=== PATIENT | female | born 1960 | race Caucasian/White ===

== ENCOUNTER 2019-10-29 10:35 | Outpatient (CLI) | payer BC, SELFPAY ==
--- NOTE | ~2019-10-29 | XR_ITS ---
XR chest 2V DATE: 10/29/2019 11:29 INDICATION: Shortness of breath TECHNIQUE: PA and lateral views COMPARISON: 08/08/2016 2 view chest 08/07/2017 CT chest FINDINGS: No pulmonary infiltrate or consolidation, pleural effusion or pulmonary vascular congestion or pneumothorax is detected. Heart size is within normal limits. No hilar or mediastinal enlargement . Diffuse idiopathic skeletal hyperostosis of the thoracic spine. IMPRESSION: No active cardiopulmonary disease or significant change since 08/08/2016 Reviewed, dictated and finalized at location B. AT INFORMATION CENTER OFFICER
[2019-10-29 18:09] LABS: Blood Urea Nitrogen 12 mg/dL (7-17); Calcium 9.8 mg/dL (8.4-10.2); Carbon Dioxide 25 mmol/L (22-30); Chloride 103 mmol/L (98-107); Estimated Glomerular Filt Rate > 60; Glucose 180 mg/dL (65-105); Potassium 4.6 mmol/L (3.4-5.0); Sodium 139 mmol/L (137-145)
[2019-10-29 18:24] LABS: NT Pro B Type Natriuretic Pept 80 PG/ML (5-100)
== END 2019-10-29 10:36 | disposition home or self-care (01) ==
PROVIDERS: PCP Family Medicine; Visit Provider Nurse Practitioner Family
DX: R60.9 Edema, unspecified (principal); R06.02 Shortness of breath
CPT/HCPCS: 36415; 71046; 80048; 83880

== ENCOUNTER 2019-11-04 15:26 | Outpatient (CLI) | payer BC, SELFPAY ==
--- NOTE | ~2019-11-04 | XR_ITS ---
EXAMINATION: XR chest 2V DATE: 11/04/2019 15:45 INDICATION: Acute upper respiratory infection TECHNIQUE: PA and lateral views of the chest are obtained. COMPARISON: 10/29/2019 FINDINGS: The lungs are free of acute opacities. There is no pleural effusion or pneumothorax. The ca rdiomediastinal silhouette is normal. There is mild thoracic spondylosis. IMPRESSION: 1. No acute cardiopulmonary abnormality. Reviewed, dictated and finalized at location A. OTIONAL DEMONSTRATOR
== END 2019-11-04 15:27 | disposition home or self-care (01) ==
PROVIDERS: PCP Family Medicine; Visit Provider Nurse Practitioner Family
DX: J06.9 Acute upper respiratory infection, unspecified (principal)
CPT/HCPCS: 71046

== ENCOUNTER 2020-04-16 15:19 | Outpatient (CLI) | payer BC, SELFPAY ==
--- NOTE | ~2020-04-16 | MM_ITS ---
EXAMINATION: MM screening rey BI w carrie HISTORY: Screening TECHNIQUE: Craniocaudal and mediolateral oblique 3-D tomosynthesis images were obtained and synthetic 2-D images were generated. CAD analysis was submitted and interpreted. COMPARISON: Comparison to multiple prior studies sequentially, with oldest reviewed study dated 07/26. BREAST PARENCHYMAL COMPOSITION: There are scattered areas of fibroglandular density. FINDINGS: Right breast asymmetries are stable. There is no evidence of suspicious mass, calcification , or architectural distortion to suggest malignancy in either breast. There has been no suspicious in terval change. IMPRESSION: 1. No mammographic evidence of malignancy. 2. Recommend routine screening mammography in one year. BI-RADS Category 2: Benign finding(s). Reviewed, dictated and finalized at location A.
== END 2020-04-16 15:20 | disposition home or self-care (01) ==
PROVIDERS: PCP Family Medicine; Visit Provider Obstetrics & Gynecology
DX: Z12.31 Encounter for screening mammogram for malignant neoplasm of breast (principal)
CPT/HCPCS: 77063; 77067

== ENCOUNTER 2020-11-26 09:29 | Outpatient (CLI) | payer BC, SELFPAY ==
--- NOTE | ~2020-11-26 | XR_ITS ---
EXAMINATION: XR knee RT min 4V EXAM DATE: 11/26/2020 09:58 INDICATION: No known recent injury provided at this time. Pain of the right knee. Rule out Matta's cy st. TECHNIQUE: Right knee frontal, crosstable lateral, orthogonal oblique projections for interpretation . There is no prior study for comparison. FINDINGS: No evidence osteochondral defect or joint body in the right knee joint. There is moderate patellofemoral and medial tibiofemoral compartment primary osteoarthritis. There are no acute fractu res or dislocations identified. There is no subcutaneous gas. The soft tissue is unremarkable. No j oint effusion. There are no radiopaque foreign bodies. Please note that Matta's cysts are best appre ciated by ultrasound. IMPRESSION: Moderate right knee osteoarthritis. Reviewed, dictated and finalized at location A. OVOLTAIC SOLAR CELL DESIGNER
== END 2020-11-26 09:30 | disposition home or self-care (01) ==
LOC: ANHIMG 09:37
PROVIDERS: PCP Family Medicine; Visit Provider Nurse Practitioner Family
DX: M17.11 Unilateral primary osteoarthritis, right knee (principal)
CPT/HCPCS: 73564

== ENCOUNTER 2020-11-27 15:12 | Outpatient (CLI) | payer BC, SELFPAY ==
--- NOTE | ~2020-11-27 | US_ITS ---
EXAMINATION: US venous doppler LE EXAM DATE: 11/27/2020 15:39 INDICATION: Right lower extremity pain. TECHNIQUE: Multiple grayscale, color flow and Doppler images of the lower extremity deep venous syste ms bilaterally were obtained and reviewed. There is no prior study for comparison. FINDINGS: Right side: The right common femoral, femoral and profunda veins demonstrate normal color flow, respi ratory variation, augmentation and compressibility. Compressibility, color flow confirmed within the right popliteal, posterior tibial, and greater saphenous veins. Left side: The left common femoral, femoral and profunda veins demonstrate normal color flow, respira tory variation, augmentation and compressibility. Compressibility, color flow confirmed within the l eft popliteal, posterior tibial, and greater saphenous veins. IMPRESSION: 1. No evidence of lower extremity deep venous thrombosis bilaterally. Reviewed, dictated and finalized at location A. [employer]
== END 2020-11-27 15:13 | disposition home or self-care (01) ==
PROVIDERS: PCP Family Medicine; Visit Provider Nurse Practitioner Family
DX: M25.561 Pain in right knee (principal)
CPT/HCPCS: 93970

== ENCOUNTER 2021-01-08 09:15 | Outpatient (CLI) | payer BC, SELFPAY | END 2021-01-08 09:16 | disposition home or self-care (01) | LOC: ANHCOVIDVC 09:15 | PROVIDERS: PCP Family Medicine | DX: Z23 Encounter for immunization (principal) | CPT/HCPCS: 0001A; 91300 ==

== ENCOUNTER 2021-01-29 09:14 | Outpatient (CLI) | payer BC, SELFPAY | END 2021-01-29 09:15 | disposition home or self-care (01) | LOC: ANHCOVIDVC 09:14 | PROVIDERS: PCP Family Medicine | DX: Z23 Encounter for immunization (principal) | CPT/HCPCS: 0002A; 91300 ==

== ENCOUNTER 2021-02-10 07:33 | Outpatient (CLI) | payer BC, SELFPAY ==
--- NOTE | 2021-02-10 08:19 | ECG_ITS ---
Measurements Intervals [place] Rate: 67 P: 66 [place]: 171 QRS: 31 QRSD: 98 T: 25 QT: 395 QTc: 420 Interpretive Statements SINUS RHYTHM LOW QRS VOLTAGE IN PRECORDIAL LEADS INCOMPLETE RIGHT BUNDLE BRANCH BLOCK BORDERLINE ECG Electronically Signed On 02-10-2021 8:27:57 CDT by Bravo Aquino D.O.
[2021-02-10 08:23] LABS: Hematocrit 44.5 % (37.0-47.0); Hemoglobin 14.3 g/dL (12.0-15.0); Mean Corpuscular HGB Conc 32.1 g/dl (32-36); Mean Corpuscular Volume 90.3 fl (80-100); Mean Platelet Volume 8.9 fl (7.4-10.4); Platelet Count Result 225 k/mm3 (150-375); Red Blood Count 4.93 M/mm3 (4.2-5.4); Red Cell Distribution Width 14.3 % (11.5-14.5); White Blood Count 6.1 K/mm3 (4.5-10.0)
[2021-02-10 08:34] LABS: Hemoglobin A1C 5.9 % (<5.7)
[2021-02-10 08:40] LABS: Alanine Aminotransferase 67 U/L (4-35); Albumin Level 4.2 g/dL (3.5-5.1); Alkaline Phosphatase 91 U/L (38-126); Anion Gap 4 mmol/L (8-16); Aspartate Amino Transferase 65 U/L (14-36); Bilirubin,Total 1.1 mg/dL (0.2-1.3); Blood Urea Nitrogen 12 mg/dL (7-17); Calcium 9.9 mg/dL (8.4-10.2); Carbon Dioxide 32 mmol/L (22-30); Chloride 104 mmol/L (98-107); Cholesterol 185 mg/dL (0-200); Estimated Glomerular Filt Rate > 60; Glucose 133 mg/dL (65-105); HDL Direct 30 mg/dL; Sodium 140 mmol/L (137-145); Triglycerides 123 mg/dL (<150)
[2021-02-10 08:52] LABS: LDL Cholesterol Direct 123 mg/dL
[2021-02-10 09:28] LABS: Vitamin D 25 Hydroxy 33.2 ng/mL
== END 2021-02-10 07:34 | disposition home or self-care (01) ==
PROVIDERS: PCP Family Medicine; Visit Provider Nurse Practitioner Family
DX: E66.01 Morbid (severe) obesity due to excess calories (principal); R73.09 Other abnormal glucose; I10 Essential (primary) hypertension; E55.9 Vitamin D deficiency, unspecified; I45.10 Unspecified right bundle-branch block
CPT/HCPCS: 36415; 80053; 80061; 82306; 83036; 84443; 85027; 93005

== ENCOUNTER → 2021-03-24 12:51 | Outpatient (CLI) | payer BC, SELFPAY ==
--- NOTE | ~2021-03-24 | US_ITS ---
EXAMINATION: US pelvic complete w TV EXAM DATE: 03/24/2021 13:18 INDICATION: N95.0 - Postmenopausal bleeding. TECHNIQUE: Pelvic transabdominal and transvaginal sonogram was performed. There are multiple graysca le and Doppler images available for interpretation. Comparison is made to prior examination from 06/05. FINDINGS: Uterus measures 8.7 x 3.1 x 3.4 cm, and is morphologically normal. Endometrial stripe rose mary sures 4 mm, within normal limits. There is no free pelvic fluid. Right adnexa: The ovary is not identified. There is no adnexal mass. Left adnexa: The ovary is not identified. There is no adnexal mass. IMPRESSION: Endometrial stripe 4 mm, within normal limits. Reviewed, dictated and finalized at location A.
== END ==
PROVIDERS: Visit Provider Obstetrics & Gynecology
DX: N95.0 Postmenopausal bleeding (principal)
CPT/HCPCS: 76830; 76856

== ENCOUNTER 2021-04-01 07:21 | Outpatient (CLI) | payer BC, SELFPAY ==
[2021-04-01 08:44] LABS: Alanine Aminotransferase 23 U/L (4-35); Albumin Level 4.3 g/dL (3.5-5.1); Alkaline Phosphatase 74 U/L (38-126); Aspartate Amino Transferase 28 U/L (14-36)
[2021-04-01 09:14] LABS: Cholesterol 127 mg/dL (0-200); Creatine Kinase 21 U/L (30-135); HDL Direct 37 mg/dL; Triglycerides 103 mg/dL (<150)
[2021-04-01 09:23] LABS: Hepatitis B Surface Antigen Negative (Negative)
[2021-04-01 09:25] LABS: LDL Cholesterol Direct 66 mg/dL
[2021-04-01 09:29] LABS: HAV RESULT Negative (Negative); Hepatitis B Core IgM Result Negative (Negative)
[2021-04-01 09:41] LABS: Hepatitis C Virus Antibody Negative (Negative)
[2021-04-04 21:54] LABS: GGT 21 U/L (3-70)
== END 2021-04-01 07:22 | disposition home or self-care (01) ==
PROVIDERS: PCP Family Medicine; Referring Provider Physician Assistant Medical; Visit Provider Nurse Practitioner Family
DX: R74.8 Abnormal levels of other serum enzymes (principal)
CPT/HCPCS: 36415; 80061; 80074; 80076; 82550; 82977

== ENCOUNTER 2021-04-06 15:11 | Outpatient (CLI) | payer BC, SELFPAY ==
--- NOTE | ~2021-04-06 | MM_ITS ---
EXAMINATION: MM screening rey BI w carrie HISTORY: Screening mammogram TECHNIQUE: Craniocaudal and mediolateral oblique 3-D tomosynthesis images were obtained and synthetic 2-D images were generated. CAD analysis was submitted and interpreted. COMPARISON: 04/16/2020, 11/21/2018, 11/03/2017 BREAST PARENCHYMAL COMPOSITION: There are scattered areas of fibroglandular density. FINDINGS: Stable focal asymmetry is noted in the upper outer quadrant of the right breast. There is n o evidence of suspicious mass, calcification, or architectural distortion to suggest malignancy in ei ther breast. There has been no suspicious interval change. IMPRESSION: 1. No mammographic evidence of malignancy. 2. Recommend routine screening mammography in one year. BI-RADS Category 2: Benign finding(s). Reviewed, dictated and finalized at location A.
== END 2021-04-06 15:12 | disposition home or self-care (01) ==
LOC: ANHIMG 15:13
PROVIDERS: PCP Family Medicine; Visit Provider Obstetrics & Gynecology
DX: Z12.31 Encounter for screening mammogram for malignant neoplasm of breast (principal)
CPT/HCPCS: 77063; 77067

== ENCOUNTER 2021-05-12 02:23 | Day surgery (SDC) | payer BC, SELFPAY ==
[2021-05-06 15:21] VITALS: BMI 48.7
--- NOTE | 2021-05-11 12:46 | WPDANESEPPF ---
Anes - Initial Pre Proc Eval Procedure: Operation Date: 05/12/21 07:30 Proposed Procedures p Hysteroscopy, Dilation and Curettage, Possible Myosure - Fermín James MD Date/Time: 05/11/21 12:46 Surgeon: Fermín James MD Pre Op Diagnosis: endometrial polyp Patient Data Age: 60 Gender: F Height: 1.65 m Weight: 133 kg Allergies Allergy/AdvReac Type Severity Reaction Status Date / Time No Known Allergies Allergy Verified 05/12/21 06:43 Home Medications Medication Instructions Recorded Confirmed Type lisinopril 10 mg tablet 10 mg PO DAILY #90 tablet 10/18/20 05/12/21 Rx metoprolol tartrate 25 mg tablet 25 mg PO BID #180 tablet 02/08/21 05/12/21 Rx rosuvastatin 20 mg tablet 20 mg PO DAILY #90 tablet 02/18/21 05/12/21 Rx ketoconazole 2 % topical cream 1 applic TOPICAL BID #60 g 05/04/21 05/12/21 Rx Aspir-81 81 mg PO DAILY 05/06/21 05/12/21 History fluconazole 150 mg tablet 150 mg PO DAILY #7 tablet 05/07/21 05/12/21 Rx Patient hx anesthesia problems: none Family hx anesthesia problems: none PMFSH Past Medical History Medical History Adult BMI 50.0-59.9 kg/sq m Asthma BMI 50.0-59.9, adult Essential (primary) hypertension Hyperlipidemia Hypertension Knee pain, right Metabolic syndrome Morbid obesity JESSICA on CPAP Postmenopausal bleeding Pre-diabetes Surgical History Surgical History H/O dilation and curettage History of ankle surgery History of tonsillectomy S/P cholecystectomy S/P hernia surgery Family History Family History Unknown Hypertension Other Colon polyp Social History Social History Smoking status: Never smoker Alcohol intake: current Spiritual care concerns: No Anes - Eval Final PreProcedure Day of Procedure 05/11/21 12:46 Patient weight: morbidly obese Heart: regular rate and rhythm Lungs: clear to auscultation and normal air movement Airway: Mallampati scale class II Neurological: alert and oriented Last oral intake: >/= 8 hours ASA classification: III Emergent: no Anesthetic plan: proceed Anesthesia type and monitoring: general LMA and ETT Informed Consent: The patient's anesthetic plan and its attendant risks and benefits were discussed with the patient/family/POA. Questions were solicited and answers provided to the satisfaction of the patient/family/POA.
--- NOTE | 2021-05-12 05:58 | PM.IMHP ---
H&P: HPI History of Present Illness Date/Time: 05/12/21 05:58 She will be getting a D&C hysteroscopy secondary to new episode of postmenopausal bleeding. The subsequent endometrial biopsy showing endometrial polyp fragment. This is her second episode of postmenopausal bleeding. She did have an an endometrial polyp removed in Jun 2018. Informed of risks of procedure to include bleeding infection injury to other organs in the urine and to repair and/or remove those organs if necessary to save her life she informed of risk of uterine perforation risk of laparoscopy laparotomy. Informed that if the pathology comes back abnormal risk of needing further more extensive procedure. Discussed that endometrial polyps can reoccur. and risk factors are obesity due to the extra estrogenic effect from the adipose cells. Discussed postop precautions pelvic rest for 2 weeks no bath or saunas 2 weeks. Her questions were answered. Consent signed. She was informed that if there are any cells that are concerning or abnormal from the D and C specimen then she may need further more extensive procedure in the future. She was informed that the office biopsy may have removed the polyp and there may not be a polyp at the time of surgery. Discussed that risk of not doing anything is persistence of the polyp which can progress to something abnormal and risk of continued episodic bleeding. Chief Complaint: Postmenopausal bleeding Review of Systems Review of Systems: All systems reviewed & are unremarkable except as noted in HPI and below Cardiovascular: Cardiovascular: Reports no additional cardiovascular complaints, Denies chest pain and Denies dyspnea Respiratory: Respiratory: Reports no additional respiratory complaints and Denies dyspnea Gastrointestinal: Gastrointestinal: Reports abdominal pain, Denies change in bowel habits, Denies diarrhea, Denies nausea and Denies vomiting Genitourinary: Genitourinary: Reports pelvic pain Musculoskeletal: Musculoskeletal: Reports back pain Integumentary/Breasts: Skin/Breast: Reports system reviewed and no additional complaints, except as docu Neurologic: Reports system reviewed and no additional complaints, except as documented [facility] Past Medical History Medical History Adult BMI 50.0-59.9 kg/sq m Asthma BMI 50.0-59.9, adult Essential (primary) hypertension Hyperlipidemia Hypertension Knee pain, right Metabolic syndrome Morbid obesity JESSICA on CPAP Postmenopausal bleeding Pre-diabetes Surgical History Surgical History H/O dilation and curettage History of ankle surgery History of tonsillectomy S/P cholecystectomy S/P hernia surgery Family History Family History Unknown Hypertension Other Colon polyp Social History Social History Smoking status: Never smoker Alcohol intake: current Spiritual care concerns: No Meds Home Medications and Allergies Home Medications Medication Instructions Recorded Confirmed Type lisinopril 10 mg tablet 10 mg PO DAILY #90 tablet 10/18/20 05/06/21 Rx metoprolol tartrate 25 mg tablet 25 mg PO BID #180 tablet 02/08/21 05/06/21 Rx rosuvastatin 20 mg tablet 20 mg PO DAILY #90 tablet 02/18/21 05/06/21 Rx ketoconazole 2 % topical cream 1 applic TOPICAL BID #60 g 05/04/21 05/06/21 Rx Aspir-81 81 mg PO DAILY 05/06/21 05/06/21 History fluconazole 150 mg tablet 150 mg PO DAILY #7 tablet 05/07/21 Rx Allergies Allergy/AdvReac Type Severity Reaction Status Date / Time No Known Allergies Allergy Verified 05/06/21 15:29 Exam Const: Orientation/consciousness: oriented to person and oriented to place HENMT: Head: normal to inspection Eyes: General: appearance normal, both eyes and all related structures Resp: Effort & Inspection: normal re
[2021-05-12] MEDS: ACETAMINOPHEN 500 MG TABLET 1000 MG PO (06:45)
[2021-05-12] MEDS: LACTATED RINGERS 1,000 ML 30 ML IV CONT ×2 (06:59→08:16)
[2021-05-12 07:03] VITALS: BP 167/62; PULSE 74; RESP 20; TEMP 36.5; O2SAT 100; BMI 51.5
--- NOTE | 2021-05-12 07:19 | WPDHPUPDATE1 ---
History and Physical Update Update Date/Time: 05/12/21 07:19 History and Physical has been reviewed, including an updated exam of the patient. There are NO changes in the patient's condition. Risks, benefits, and alternatives have been discussed and questions answered. Patient agrees to proceed with procedure.
[2021-05-12] MEDS: ceFAZolin 3 GM/D5W 100 ML 100 ML IVPB (07:30)
--- NOTE | 2021-05-12 08:10 | W.PM.PROC2 ---
Procedure Note - Detailed Date of Procedure 05/12/21 Pre-op Diagnosis endometrial polyp, postmenopausal bleeding Post-op Diagnosis same Procedure Performed Hysteroscopy and dilation and currettage Surgeon Fermín James MD Anesthesia MAC and local Indications Patient with postmenopausal bleeding and endometrial stripe was thickened on ultrasound endometrial biopsy in office showed possible endometrial polyp fragments.she was recommended for D and C hysteroscopy and removal of polyp if seen. Findings Normal cavity, minimal tissue obtained with currettage, uterine sound 7.5cm, 750 cc in, 580cc out of normal saline distending media. Description of Procedure after informed consent was obtained patient was taken to the operating room and adequate IV sedation was administered she was placed in high lithotomy position and prepped and draped in sterile fashion attention was turned to the vagina speculum was inserted single tooth tenaculum placed on anterior lip of the cervix 1% lidocaine was injected at the cervical vaginal interface a 258 and 10:00 a.m.. The uterus was sounded to 7 cm. The cervix was dilated to an 8 Upton dilator. The hysteroscope was inserted. There were no abnormalities noted with the cavity. A curettage was performed minimal tissue was obtained. The area at the tenaculum site was hemostatic. The patient tolerated procedure well. She was taken to recovery room stable condition. Estimated Blood Loss 5 Pathology yes ( Endometrial curettings scant) Complications No immediate complications Condition stable Disposition same day
[2021-05-12 08:16] VITALS: BP 162/84; PULSE 56; RESP 16; O2SAT 95
[2021-05-12 08:40] VITALS: BP 151/78; PULSE 54; RESP 18; O2SAT 95
[2021-05-12 09:00] VITALS: BP 178/79; PULSE 59; RESP 18
== END 2021-05-12 09:05 | disposition home or self-care (01) ==
PROVIDERS: PCP Family Medicine; Visit Provider Obstetrics & Gynecology
PROC: 0U5B8ZZ Destruction of Endometrium, Via Natural or Artificial Opening Endoscopic (ICD-10-PCS; CPT 58563; principal; 2021-05-12 07:30)
DX: N95.0 Postmenopausal bleeding (principal); Z79.82 Long term (current) use of aspirin; J45.909 Unspecified asthma, uncomplicated; I10 Essential (primary) hypertension; E78.5 Hyperlipidemia, unspecified; G47.33 Obstructive sleep apnea (adult) (pediatric); R73.03 Prediabetes; E66.01 Morbid (severe) obesity due to excess calories; Z68.43 Body mass index [BMI] 50.0-59.9, adult
CPT/HCPCS: 58558; 88305; A9270; J0690; J1100; J2250; J2405; J2704; J3010; J7030; J7120

== ENCOUNTER 2021-07-26 00:41 | Day surgery (SDC) | payer BC, SELFPAY ==
[2021-07-09 10:37] VITALS: BMI 49.5
--- NOTE | 2021-07-23 14:39 | PM.HPGS ---
History of Present Illness History of Present Illness Consent: Risks, benefits, and alternatives have been discussed and questions answered. Patient agrees to proceed with procedure. Chief complaint: neoplasm screening Narrative: Nedra Dorman is a 61 year old female here for colon cancer screening. Review of Systems Review of Systems: All systems reviewed & are unremarkable except as noted in HPI and below PMFSH Past Medical History Medical History Adult BMI 50.0-59.9 kg/sq m Asthma BMI 50.0-59.9, adult Essential (primary) hypertension Hyperlipidemia Hypertension Knee pain, right Metabolic syndrome Morbid obesity JESSICA on CPAP Postmenopausal bleeding Pre-diabetes Surgical History Surgical History H/O dilation and curettage History of ankle surgery History of tonsillectomy S/P cholecystectomy S/P hernia surgery Family History Family History Unknown Hypertension Other Colon polyp Social History Social History Smoking status: Never smoker Second hand tobacco smoke exposure: No Alcohol intake: never Substance use: never Substance use type: does not use Living arrangements: with family Gender identity (if verbalized by the patient): Female Sexual Orientation (if Verbalized by the Patient): Straight or Heterosexual Spiritual care concerns: No Agree to blood products: Yes Meds Home Medications and Allergies Home Medications Medication Instructions Recorded Confirmed Type lisinopril 10 mg tablet 10 mg PO DAILY #90 tablet 10/18/20 07/26/21 Rx metoprolol tartrate 25 mg tablet 25 mg PO BID #180 tablet 02/08/21 07/26/21 Rx Aspir-81 81 mg PO DAILY 05/06/21 07/26/21 History rosuvastatin 20 mg tablet 20 mg PO DAILY #90 tablet 05/17/21 07/26/21 Rx semaglutide 0.5 mg SUBCUT WEEKLY #1.5 ml 06/03/21 07/26/21 Rx Allergies Allergy/AdvReac Type Severity Reaction Status Date / Time No Known Allergies Allergy Verified 07/26/21 07:42 Exam Resp: Auscultation: clear to auscultation bilaterally Cardio: Rate: regular rate Rhythm: regular rhythm GI: GI Palp: Yes Soft to palpation and No Tenderness to palpation present (GI) Assessment and Plan Assessment and plan (1) Screening for colon cancer: Code(s): Z12.11 - Encounter for screening for malignant neoplasm of colon Status: Acute Assessment and Plan: Colonoscopy with possible biopsy or polypectomy or cautery or injection of substances.
[2021-07-26 07:43] VITALS: BP 154/83; PULSE 76; RESP 20; TEMP 36.2; O2SAT 97; BMI 48.7
[2021-07-26] MEDS: LACTATED RINGERS 1,000 ML 150 ML IV CONT (07:48)
--- NOTE | 2021-07-26 07:59 | P.PNAN_ITS ---
Anes - Initial Pre Proc Eval Procedure: Operation Date: 07/26/21 08:30 Proposed Procedures p Screening Colonoscopy - Mendoza Phan MD Date/Time: 07/26/21 07:59 Surgeon: Mendoza Phan MD Pre Op Diagnosis: neoplasm screening Patient Data Age: 61 Gender: F Height: 1.65 m Weight: 132.9 kg Last Vital Signs Temp 36.2 C L 07/26/21 07:43 Pulse 76 07/26/21 07:43 Resp 20 07/26/21 07:43 BP 154/83 H 07/26/21 07:43 Pulse Ox 97 07/26/21 07:43 Allergies Allergy/AdvReac Type Severity Reaction Status Date / Time No Known Allergies Allergy Verified 07/26/21 07:42 Home Medications Medication Instructions Recorded Confirmed Type lisinopril 10 mg tablet 10 mg PO DAILY #90 tablet 10/18/20 07/26/21 Rx metoprolol tartrate 25 mg tablet 25 mg PO BID #180 tablet 02/08/21 07/26/21 Rx Aspir-81 81 mg PO DAILY 05/06/21 07/26/21 History rosuvastatin 20 mg tablet 20 mg PO DAILY #90 tablet 05/17/21 07/26/21 Rx semaglutide 0.5 mg SUBCUT WEEKLY #1.5 ml 06/03/21 07/26/21 Rx Patient hx anesthesia problems: none Family hx anesthesia problems: none Results Review: All pre-operative results and documents have been reviewed as part of the pre-operative evaluation. [facility] Past Medical History Medical History Adult BMI 50.0-59.9 kg/sq m Asthma BMI 50.0-59.9, adult Essential (primary) hypertension Hyperlipidemia Hypertension Knee pain, right Metabolic syndrome Morbid obesity JESSICA on CPAP Postmenopausal bleeding Pre-diabetes Surgical History Surgical History H/O dilation and curettage History of ankle surgery History of tonsillectomy S/P cholecystectomy S/P hernia surgery Family History Family History Unknown Hypertension Other Colon polyp Social History Social History Smoking status: Never smoker Second hand tobacco smoke exposure: No Alcohol intake: never Substance use: never Substance use type: does not use Living arrangements: with family Gender identity (if verbalized by the patient): Female Sexual Orientation (if Verbalized by the Patient): Straight or Heterosexual Spiritual care concerns: No Agree to blood products: Yes Anes - Eval Final PreProcedure Day of Procedure 07/26/21 07:59 Patient weight: morbidly obese Heart: regular rate and rhythm Lungs: clear to auscultation Airway: Mallampati scale class II Neurological: alert and oriented Last oral intake: >/= 8 hours ASA classification: III Emergent: no Anesthetic plan: proceed Anesthesia type and monitoring: general GIVS and standard monitoring Results Review: All pre-operative results and documents have been reviewed as part of the pre-operative evaluation. Informed Consent: The patient's anesthetic plan and its attendant risks and benefits were discussed with the patient/family/POA. Questions were solicited and answers provided to the satisfaction of the patient/family/POA.
[2021-07-26 08:35] VITALS: BP 130/71; PULSE 72; RESP 13; O2SAT 96
[2021-07-26 08:45] VITALS: BP 145/72; PULSE 71; RESP 20; O2SAT 100
[2021-07-26 08:55] VITALS: BP 164/70; PULSE 74; RESP 21; O2SAT 100
== END 2021-07-26 09:04 | disposition home or self-care (01) ==
PROVIDERS: PCP Family Medicine; Visit Provider Internal Medicine Gastroenterology
PROC: 0DJD8ZZ Inspection of Lower Intestinal Tract, Via Natural or Artificial Opening Endoscopic (ICD-10-PCS; CPT 45378; principal; 2021-07-26 08:30)
DX: Z12.11 Encounter for screening for malignant neoplasm of colon (principal); Z86.010 Personal history of colon polyps; Z79.82 Long term (current) use of aspirin; J45.909 Unspecified asthma, uncomplicated; I10 Essential (primary) hypertension; E78.5 Hyperlipidemia, unspecified; G47.33 Obstructive sleep apnea (adult) (pediatric); R73.03 Prediabetes; E66.01 Morbid (severe) obesity due to excess calories; Z68.42 Body mass index [BMI] 45.0-49.9, adult
CPT/HCPCS: 45378; J2704; J7120

== ENCOUNTER 2022-03-22 06:42 | Outpatient (CLI) | payer BC, SELFPAY ==
[2022-03-22 08:15] LABS: Hematocrit 43.4 % (37.0-47.0); Hemoglobin 13.5 g/dL (12.0-15.0); Mean Corpuscular HGB Conc 31.1 g/dl (32-36); Mean Corpuscular Hemoglobin 27.8 pg (26-34); Mean Corpuscular Volume 89.5 fl (80-100); Mean Platelet Volume 9.7 fl (7.4-10.4); Platelet Count Result 208 k/mm3 (150-375); Red Blood Count 4.85 M/mm3 (4.2-5.4); Red Cell Distribution Width 15.2 % (11.5-14.5)
[2022-03-22 08:17] LABS: Appearance Urine Clear (Clear); Bilirubin Urine Negative (Negative); Blood Urine Negative (Negative); Color Urine Yellow (Yellow); Glucose Urine UA Negative (Negative); Ketones Urine Negative (Negative); Leukocyte Esterase Ur Negative LEU/UL (NEGATIVE); Nitrate Urine Negative (Negative); Protein Urine Negative (Negative); Urobilinogen Urine 0.2 mg/dL (<2.0); pH Urine 5.5 (5.0-9.0)
[2022-03-22 08:24] LABS: Alanine Aminotransferase 17 U/L (6-35); Albumin Level 4.3 g/dL (3.5-5.1); Alkaline Phosphatase 71 U/L (38-126); Anion Gap 6 mmol/L (8-16); Aspartate Amino Transferase 20 U/L (14-36); Bilirubin,Total 0.9 mg/dL (0.2-1.3); Blood Urea Nitrogen 16 mg/dL (7-17); Calcium 9.2 mg/dL (8.4-10.2); Carbon Dioxide 32 mmol/L (22-30); Chloride 105 mmol/L (98-107); Cholesterol 144 mg/dL (0-200); Estimated Glomerular Filt Rate > 60; Glucose 118 mg/dL (65-110); HDL Direct 42 mg/dL; Potassium 4.4 mmol/L (3.4-5.0); Sodium 143 mmol/L (137-145); Triglycerides 101 mg/dL (<150)
[2022-03-22 08:35] LABS: LDL Cholesterol Direct 70 mg/dL
[2022-03-22 09:10] LABS: Vitamin D 25 Hydroxy 46.6 ng/mL
[2022-03-22 09:19] LABS: Bacteria Urine Trace /hpf; RBC Urine 0-2 /hpf (0-2); Squamous Epithelial Cell Urine Few /hpf (Few); WBC Urine 0-3 /hpf (0-3)
[2022-03-22 09:24] LABS: Add Urine Microscopic? NO
== END 2022-03-22 06:43 | disposition home or self-care (01) ==
PROVIDERS: PCP Family Medicine; Visit Provider Nurse Practitioner Family
DX: E55.9 Vitamin D deficiency, unspecified (principal); E78.5 Hyperlipidemia, unspecified; I10 Essential (primary) hypertension; R35.0 Frequency of micturition
CPT/HCPCS: 36415; 80053; 80061; 81003; 82306; 84443; 85027

== ENCOUNTER 2022-05-12 08:22 | Outpatient (CLI) | payer BC, SELFPAY ==
--- NOTE | ~2022-05-12 | MM_ITS ---
EXAMINATION: MM screening rey BI w carrie HISTORY: Screening mammogram TECHNIQUE: Craniocaudal and mediolateral oblique 3-D tomosynthesis images were obtained and synthetic 2-D images were generated. CAD analysis was submitted and interpreted. COMPARISON: No prior mammogram is available for comparison at this institution. BREAST PARENCHYMAL COMPOSITION: There are scattered areas of fibroglandular density. FINDINGS: Bilateral asymmetries, in the mid to upper outer right breast and upper outer left breast. Bilateral diagnostic mammography and breast ultrasound examination are recommended. IMPRESSION: 1. Bilateral mammographic asymmetries 2. Bilateral diagnostic mammography and breast ultrasound examination are recommended BI-RADS Category 0: Incomplete: Needs additional imaging evaluation. Reviewed, dictated and finalized at location A. IMPRESSION: 1. Bilateral mammographic asymmetries 2. Bilateral diagnostic mammography and breast ultrasound examination are recom mended BI-RADS Category 0: Incomplete: Needs additional imaging evaluation.
== END 2022-05-12 08:23 | disposition home or self-care (01) ==
PROVIDERS: PCP Family Medicine; Visit Provider Obstetrics & Gynecology
DX: Z12.31 Encounter for screening mammogram for malignant neoplasm of breast (principal); R92.8 Other abnormal and inconclusive findings on diagnostic imaging of breast
CPT/HCPCS: 77063; 77067

== ENCOUNTER 2022-05-24 09:54 | Outpatient (CLI) | payer BC, SELFPAY ==
--- NOTE | ~2022-05-24 | MMUS_ITS ---
EXAMINATION: MM diagnostic rey BI w carrie, US breast BI limited HISTORY: Bilateral breast asymmetries on screening mammogram TECHNIQUE: Additional 3-D tomosynthesis images of the breasts were performed and synthetic 2-D images were generated. CAD analysis was submitted and interpreted. High resolution limited bilateral breast ultrasound was performed. COMPARISON: Prior mammograms and ultrasound dating back to 07/28/2014 FINDINGS: MAMMOGRAPHIC FINDINGS: Right breast: A focal asymmetry of the right breast has a stable appearance with spot compression whe n compared to multiple prior examinations. No suspicious interval change is identified. Left breast: There is a return to baseline fibroglandular appearance with spot compression of the lef t breast in the area questioned on screening mammogram. ULTRASOUND: Right breast: There is a chronic area of sonographic shadowing related to extremely dense tissue in t he middle third of the outer right breast at the 9:30 location 10 cm from the nipple. There has been no suspicious interval change since the 2013 comparison ultrasound. Left breast: No suspicious cystic or solid sonographically detected mass is identified. IMPRESSION: 1. No mammographic or sonographic evidence of malignancy. 2. Recommend routine screening mammography in one year. BI-RADS Category 2: Benign finding(s). Reviewed, dictated and finalized at location A. IMPRESSION: 1. No mammographic or sonographic evidence of malignancy. 2. Recommend routine screening mammography in one year. BI-RADS Category 2: Benign finding(s).
== END 2022-05-24 09:55 ==
PROVIDERS: PCP Family Medicine; Visit Provider Obstetrics & Gynecology
DX: R92.8 Other abnormal and inconclusive findings on diagnostic imaging of breast (principal)
CPT/HCPCS: 76642; 77062; 77066; G0279

== ENCOUNTER 2022-06-04 08:09 | Outpatient (CLI) | payer BC, SELFPAY ==
[2022-06-04 08:58] LABS: Hemoglobin A1C 5.4 % (<5.7)
[2022-06-07 12:50] LABS: Insulin Level Total 17.3 uIU/mL (<=19.6)
[2022-06-09 22:42] LABS: Estrogen 212.9 pg/mL
[2022-06-12 03:45] LABS: Testosterone Free 2.7 pg/mL (0.1-6.4); Testosterone Total 21 ng/dL (2-45)
== END 2022-06-04 08:10 | disposition home or self-care (01) ==
LOC: ANHLAB 08:12
PROVIDERS: PCP Family Medicine; Visit Provider Nurse Practitioner Family
DX: R63.5 Abnormal weight gain (principal); R73.09 Other abnormal glucose
CPT/HCPCS: 36415; 82672; 83036; 83525; 84402; 84403

== ENCOUNTER 2022-07-01 07:21 | Outpatient (CLI) | payer BC, SELFPAY ==
--- NOTE | ~2022-07-01 | MR_ITS ---
EXAMINATION: MR knee LT wo con DATE: 07/01/2022 07:50 INDICATION: Left knee pain TECHNIQUE: Magnetic resonance imaging (MRI) of the left knee was performed without intravenous contra st. Sequences included coronal PD-weighted FSE, coronal PD-weighted FS FSE, sagittal T2-weighted FSE , sagittal PD-weighted FS FSE and axial PD weighted fat saturated FSE. COMPARISON: None. FINDINGS: Medial compartment: There is medial extrusion of the medial meniscal body. There is increased intrasubstance signal in th e posterior horn which does not unambiguously contact the articular surface consistent with mucoid de generation. Deep chondral ulceration along the anterior to central weightbearing medial femoral condy le with underlying mild cortical irregularity anteriorly. Additional deep chondral ulceration with mi ld underlying edema-like signal change involving the anterior, central and medial portion of the medi al tibial plateau. Small shallow concavity to the central articular surface of the medial tibial plat eau without underlying edema to suggest acute fracture. Lateral compartment: Lateral meniscus is normal. Partial-thickness chondral ulceration and deep fissuring at the anterior to central weightbearing lateral femoral condyle. Mild partial-thickness cartilage loss with mild cho ndral surface regularity along the medial half of the lateral tibial plateau. Patellofemoral compartment: Partial-thickness chondral ulceration without degenerative subchondral changes at the patella where i t appears to involve up to 50% the cartilage thickness. Additional extensive deep chondral ulceration at the trochlea where it involves greater than 50% the cartilage thickness and with mild underlying cortical irregularity at the inferior aspect of the trochlear groove and medial trochlea. Ligaments and tendons: Anterior and posterior cruciate ligaments are normal. The medial collateral ligament and fibular tamiko ateral ligament complex are normal. Mild patellar tendinopathy and mild tendinopathy at the distal qu adriceps tendon. The visualized medial and lateral hamstring tendons as well as the iliotibial band a re normal. Fluid: Minimal left knee joint effusion. No loose osteochondral bodies identified. Small Matta's cyst. Osseous/other: Bone alignment is normal. Small low signal intensity bone island in the posterior lateral femoral con dyle. Mild patchy red marrow reexpansion in the metaphyseal region of the distal femur and proximal t ibia with more confluent red marrow reexpansion in the distal femoral diaphysis. No fracture or patho logic marrow replacing process. IMPRESSION: 1. Medial extrusion of the medial meniscal body with mucoid degeneration at the posterior horn but no definitive meniscal tear. 2. Tricompartmental osteoarthritis, severe with high-grade chondromalacia in the medial compartment, moderate severity with extensive high-grade chondromalacia in the patellofemoral compartment and mild with moderate grade chondromalacia in the lateral compartment. 3. Mild patellar and distal quadriceps tendinopathy. 4. Minimal left knee joint effusion and small Matta's cyst. Reviewed, dictated and finalized at location A. IMPRESSION: 1. Medial extrusion of the medial meniscal body with mucoid degeneration at the posterior horn but no definitive meniscal tear. 2. Tricompartmental osteoarthritis, severe with high-grade chondromalacia in th e medial compartment, moderate severity with extensive high-grade chondromalaci a in the patellofemoral compartment and mild with moderate grade chondromalacia in the lateral compartment. 3. Mild patellar and distal quadriceps tendinopathy. 4. Minimal left knee joint effusion and small Matta's cyst.
== END 2022-07-01 07:22 ==
PROVIDERS: PCP Family Medicine; Visit Provider Nurse Practitioner Family
DX: M17.12 Unilateral primary osteoarthritis, left knee (principal); M25.462 Effusion, left knee; M71.22 Synovial cyst of popliteal space [Baker], left knee
CPT/HCPCS: 73721

== ENCOUNTER 2022-09-13 08:49 | Outpatient (CLI) | payer BC, SELFPAY | END 2022-09-13 08:50 | disposition home or self-care (01) | LOC: ANHAUDIO 08:50 | PROVIDERS: PCP Family Medicine; Visit Provider Nurse Practitioner Family | DX: H93.19 Tinnitus, unspecified ear (principal); H90.3 Sensorineural hearing loss, bilateral | CPT/HCPCS: 92557; 92567 ==

== ENCOUNTER 2022-11-14 13:51 | Outpatient (CLI) | payer BC, SELFPAY ==
--- NOTE | ~2022-11-14 | US_ITS ---
EXAMINATION: US soft tissue LE RT DATE: 11/14/2022 14:35 INDICATION: Right posterior knee pain TECHNIQUE: Multiple grayscale and Doppler ultrasound images of the region of concern posterior to the right knee were obtained. COMPARISON: None FINDINGS/IMPRESSION: No Matta's cyst or other abnormal masses or fluid collections identified at the region of concern pos terior to the right knee. Reviewed, dictated and finalized at location A. AL REPRESENTATIVE
--- NOTE | ~2022-11-14 | XR_ITS ---
XR knee RT 3V 11/14/2022 14:13 Indication: Right knee pain Procedure: 3 views right knee Comparison: 11/26/2020 Findings: There is tricompartment osteoarthritis of the knees which is not significantly changed from prior examination allowing for differences of technique. No significant joint effusion. Impression: 1: Moderate tricompartment osteoarthritis of the right knee. Reviewed, dictated and finalized at location B. SOFTWARE ARCHITECT Impression: 1: Moderate tricompartment osteoarthritis of the right knee.
== END 2022-11-14 13:52 | disposition home or self-care (01) ==
PROVIDERS: PCP Family Medicine; Visit Provider Nurse Practitioner Family
DX: M25.561 Pain in right knee (principal); M17.11 Unilateral primary osteoarthritis, right knee
CPT/HCPCS: 73562; 76882

== ENCOUNTER 2023-03-23 06:56 | Outpatient (CLI) | payer BC, SELFPAY ==
[2023-03-23 07:52] LABS: Alanine Aminotransferase 23 U/L (6-35); Albumin Level 4.6 g/dL (3.5-5.1); Alkaline Phosphatase 77 U/L (38-126); Anion Gap 6 mmol/L (8-16); Aspartate Amino Transferase 26 U/L (14-36); Bilirubin,Total 1.2 mg/dL (0.2-1.3); Blood Urea Nitrogen 16 mg/dL (7-17); Calcium 9.4 mg/dL (8.4-10.2); Carbon Dioxide 26 mmol/L (22-30); Chloride 105 mmol/L (98-107); Cholesterol 145 mg/dL (0-200); Estimated Glomerular Filt Rate > 60; Glucose 113 mg/dL (65-110); HDL Direct 44 mg/dL; Hematocrit 44.7 % (37.0-47.0); Hemoglobin 13.9 g/dL (12.0-15.0); Mean Corpuscular HGB Conc 31.1 g/dl (32-36); Mean Corpuscular Hemoglobin 28.3 pg (26-34); Mean Platelet Volume 10.2 fl (7.4-10.4); Platelet Count Result 192 k/mm3 (150-375); Potassium 4.7 mmol/L (3.4-5.0); Red Blood Count 4.91 M/mm3 (4.2-5.4); Red Cell Distribution Width 14.6 % (11.5-14.5); Sodium 137 mmol/L (137-145); Triglycerides 122 mg/dL (<150); White Blood Count 5.6 K/mm3 (4.5-10.0)
[2023-03-23 08:03] LABS: LDL Cholesterol Direct 78 mg/dL
== END 2023-03-23 06:57 | disposition home or self-care (01) ==
LOC: ANHLAB 06:57
PROVIDERS: PCP Family Medicine; Visit Provider Nurse Practitioner Family
DX: E78.5 Hyperlipidemia, unspecified (principal); I10 Essential (primary) hypertension; Z13.29 Encounter for screening for other suspected endocrine disorder
CPT/HCPCS: 36415; 80053; 80061; 84443; 85027

== ENCOUNTER → 2023-09-02 08:09 | Outpatient (CLI) | payer BC, SELFPAY ==
--- NOTE | ~2023-09-02 | MM_ITS ---
EXAMINATION: MM screening rey BI w carrie HISTORY: Screening TECHNIQUE: Craniocaudal and mediolateral oblique 3-D tomosynthesis images were obtained and synthetic 2-D images were generated. CAD analysis was submitted and interpreted. COMPARISON: Comparison to multiple prior studies sequentially, with oldest reviewed study dated 11/21. BREAST PARENCHYMAL COMPOSITION: There are scattered areas of fibroglandular density. FINDINGS: There is no evidence of suspicious mass, calcification, or architectural distortion to sugg est malignancy in either breast. There has been no suspicious interval change. IMPRESSION: 1. No mammographic evidence of malignancy. 2. Recommend routine screening mammography in one year. BI-RADS Category 1: Negative Reviewed, dictated and finalized at location A. E DATA COMMUNICATIONS ENGINEER
== END ==
PROVIDERS: PCP Nurse Practitioner Family; Visit Provider Obstetrics & Gynecology
DX: Z12.31 Encounter for screening mammogram for malignant neoplasm of breast (principal)
CPT/HCPCS: 77063; 77067

== ENCOUNTER 2023-09-26 08:21 | Outpatient (CLI) | payer BC, SELFPAY ==
--- NOTE | ~2023-09-26 | XR_ITS ---
Clinical Indication: Fatigue, shortness of breath PA and lateral views of the chest: Comparison: 11/04/2019 Findings: The lungs are clear, without evidence of focal consolidation or pleural effusion. Cardiome diastinal silhouette is within normal limits. Bones and soft tissues are unremarkable. Impression: Normal chest. Reviewed, dictated and finalized at location . R TRUCK DRIVER Impression: Normal chest.
[2023-09-26 09:38] LABS: Hematocrit 44.8 % (37.0-47.0); Hemoglobin 13.7 g/dL (12.0-15.0); Mean Corpuscular HGB Conc 30.6 g/dl (32-36); Mean Corpuscular Hemoglobin 27.2 pg (26-34); Mean Corpuscular Volume 89.1 fl (80-100); Mean Platelet Volume 9.6 fl (7.4-10.4); Platelet Count Result 218 k/mm3 (150-375); Red Blood Count 5.03 M/mm3 (4.2-5.4); Red Cell Distribution Width 14.3 % (11.5-14.5); White Blood Count 5.4 K/mm3 (4.5-10.0)
[2023-09-26 09:53] LABS: Alanine Aminotransferase 33 U/L (6-35); Albumin Level 4.4 g/dL (3.5-5.1); Alkaline Phosphatase 71 U/L (38-126); Anion Gap 8 mmol/L (8-16); Aspartate Amino Transferase 32 U/L (14-36); Bilirubin,Total 1.2 mg/dL (0.2-1.3); Blood Urea Nitrogen 19 mg/dL (7-17); Calcium 8.9 mg/dL (8.4-10.2); Carbon Dioxide 28 mmol/L (22-30); Chloride 105 mmol/L (98-107); Estimated Glomerular Filt Rate > 60; Glucose 97 mg/dL (65-110); Potassium 4.2 mmol/L (3.4-5.0); Sodium 141 mmol/L (137-145)
[2023-09-26 10:01] LABS: NT Pro B Type Natriuretic Pept 83 pg/mL (19.9-100)
== END 2023-09-26 08:22 | disposition home or self-care (01) ==
PROVIDERS: PCP Nurse Practitioner Family; Visit Provider Nurse Practitioner Family
DX: M79.89 Other specified soft tissue disorders (principal); R06.02 Shortness of breath; R07.89 Other chest pain
CPT/HCPCS: 36415; 71046; 80053; 83880; 85027

== ENCOUNTER 2023-10-06 09:06 | Outpatient (CLI) | payer BC, SELFPAY ==
--- NOTE | 2023-10-06 11:59 | WPDPFTINT ---
PFT Procedure Performed PFT Procedure Performed Spirometry with Pre/Post Bronchodilator Plethysmography (Lung Vol) Diffusing Cap (DLCO) Flow Vol Loop PFT Interpretation This is a pulmonary function test with pre and post-bronchodilator spirometry, plethysmography and diffusing capacity. The test was performed and results interpreted in accordance with the 2019 and 2005 ATS/ERS Task Force guidelines respectively using the Global Lung Function Initiative-2012 reference equations. Patient demonstrated good effort and cooperation. Reproducibility criteria were met. The quality of the pre bronchodilator spirometry maneuver was Grade A and post bronchodilator spirometry maneuver was Grade A. Findings: Spirometry: There is decreased maximal expiratory airflow at all lung volumes with concave expiratory flow tracing. The contour the inspiratory flow tracing is normal. The pre bronchodilator FVC is 2.49 L, 77% predicted. The pre bronchodilator FEV1 is 1.66 L, 65% predicted. The pre bronchodilator FEV1: FVC ratio 67%. The post bronchodilator FVC is 2.66 L, representing a 7% increase. The post bronchodilator FEV1 is 1.98 L, representing a 19% increase. The post bronchodilator FEV1: FVC ratio 74%. Plethysmography: The total lung capacity equals 3.73 L, 72% predicted. The functional residual capacity is 1.47 L, 50% predicted. The residual volume is 1.22 L, 59% predicted. Diffusing capacity: The diffusing capacity unadjusted for hemoglobin and carboxyhemoglobin is 16.9, 77% predicted. The diffusing capacity adjusted for alveolar volume is 4.92, 112% predicted. In comparison to previous pulmonary function testing on 12/21/2016 the post bronchodilator FVC is unchanged from 2.75 L to 2.66 L. The post bronchodilator FEV1 is unchanged from 1.98 L to 1.98 L. The total lung capacity is is decreased from 4.28 L to 3.73 L. The functional residual capacity is unchanged from 1.66 L to 1.47 L. The residual volume is decreased from 1.51 L to 1.22 L. The diffusing capacity unadjusted for hemoglobin and carboxyhemoglobin is decreased from 22.5 to 16.9. The diffusing capacity adjusted for alveolar volume is decreased from 6.10 to 4.92. Impression: There is a combined obstructive and restrictive ventilatory abnormality. There are no guidelines to assign the severity of obstruction and restriction with a combined abnormality. In my opinion, given the concave expiratory flow tracing, decreased FEV1: FVC ratio and minimal restrictive abnormality I would state there is a mild obstructive abnormality and a minimal restrictive abnormality resulting in a moderate decrease in the FEV1. There is significant improvement after inhaling a single dose of albuterol. The diffusing capacity is normal. In comparison to previous pulmonary function testing on 12/21/2016 there is a greater than anticipated time dependent decrease in the total lung capacity, functional residual capacity and diffusing capacity with no significant change in the FVC, FEV1 or functional residual capacity. Clinical correlation is recommended.
== END 2023-10-06 09:07 | disposition home or self-care (01) ==
PROVIDERS: PCP Nurse Practitioner Family; Visit Provider Nurse Practitioner Family
DX: R06.02 Shortness of breath (principal); R94.2 Abnormal results of pulmonary function studies
CPT/HCPCS: 94060; 94726; 94729

== ENCOUNTER 2023-10-17 08:53 | Outpatient (CLI) | payer BC, SELFPAY ==
--- NOTE | ~2023-10-17 | NM_ITS ---
EXAMINATION: NM pierce stress w perfusion DATE: 10/17/2023 11:30 INDICATION: Dorsalgia. Shortness of breath. Other unspecified chest pain. TECHNIQUE: Rest images were obtained following intravenous administration of 9.9 mCi Tc99m tetrofosmi n (Myoview). The patient was infused intravenously with Lexiscan (Regadenoson). Then, 32 mCi Tc99m te trofosmin (Myoview) was administered intravenously, and stress images were obtained, initially in the supine position with repeat post stress imaging obtained in the prone position. Data was reconstruct ed into short axis and horizontal and vertical long axis SPECT images. Gated SPECT images were also o btained. COMPARISON: None. FINDINGS: Artifactual decreased activity along portions of the anterior, anterolateral and posterolat eral cagle on the rest and stress imaging obtained in the supine position. This normalizes on the pos t stress imaging obtained in the prone position. There are no definitive reversible or fixed perfusio n abnormalities to suggest ischemia or infarction. There is normal left ventricular chamber size, wal l motion and ejection fraction. Left ventricular ejection fraction measures >70%. IMPRESSION: 1. Normal myocardial perfusion on post stress imaging obtained in prone position. 2. Left ventricular ejection fraction measuring >70%. Reviewed, dictated and finalized at location A. CTOR OF VOCATIONAL GUIDANCE IMPRESSION: 1. Normal myocardial perfusion on post stress imaging obtained in prone positio n. 2. Left ventricular ejection fraction measuring >70%.
--- NOTE | 2023-10-17 09:29 | EST_ITS ---
Patient Info Name: Nedra Dorman Age: 63 years : 1960 Gender: Female Ht: 65 in Wt: 310 lbs BSA: 2.63 m2 HR: 62 bpm BP: 179 / 94 mmHg Heart Rhythm: Sinus Rhythm Exam Date: 10/17/2023 10:13 AM Exam Location: Echo Lab Patient Status: Outpatient Admit Date: 10/17/2023 Staff Ordering Physician: Ayleen Koenig Attending Provider: Ayleen Koenig Exercise Technologist: Dinorah Baldwin CT Exercise Physician: Bravo Aquino DO Exam Type: CA stress pierce w NM Study Info Indications R06.02 - Shortness of breath R07.89 - Other chest pain A regadenoson stress test was performed. Summary 1. 1. Negative lexiscan stress test for ischemic ST changes by ECG criteria. 2. 2. Baseline hypertension with hypertensive response to lexiscan. 3. 3. Nuclear scan to follow and will be reported separately. Please correlate with it. 4. 4. Patient informed of the above results. Protocol: Lexiscan Stress ECG Details Stage: REST Duration (min): 7 min : 9 sec HR (bpm): 65 SBP (mmHg): 179 DBP (mmHg): 94 Stage: REST Duration (min): 8 min : 9 sec HR (bpm): 65 SBP (mmHg): 179 DBP (mmHg): 94 Stage: STAGE 1 Duration (min): 0 min : 59 sec HR (bpm): 81 SBP (mmHg): 234 DBP (mmHg): 94 Stage: RECOVERY Duration (min): 1 min : 0 sec HR (bpm): 81 SBP (mmHg): 234 DBP (mmHg): 94 Stage: RECOVERY Duration (min): 2 min : 0 sec HR (bpm): 80 SBP (mmHg): 238 DBP (mmHg): 93 Stage: RECOVERY Duration (min): 3 min : 0 sec HR (bpm): 77 SBP (mmHg): 238 DBP (mmHg): 93 Stage: RECOVERY Duration (min): 4 min : 0 sec HR (bpm): 77 SBP (mmHg): 238 DBP (mmHg): 93 Stage: RECOVERY Duration (min): 5 min : 0 sec HR (bpm): 80 SBP (mmHg): 238 DBP (mmHg): 93 Stage: RECOVERY Duration (min): 6 min : 0 sec HR (bpm): 73 SBP (mmHg): 238 DBP (mmHg): 93 Stage: RECOVERY Duration (min): 7 min : 0 sec HR (bpm): 74 SBP (mmHg): 238 DBP (mmHg): 93 Stage: RECOVERY Duration (min): 8 min : 0 sec HR (bpm): 71 SBP (mmHg): 238 DBP (mmHg): 93 Stage: RECOVERY Duration (min): 8 min : 2 sec HR (bpm): 70 SBP (mmHg): 238 DBP (mmHg): 93 Rest HR: 65 bpm Peak HR: 85 bpm Rest Sys BP: 179 mmHg Peak Sys BP: 238 mmHg Max Pred HR: 159 bpm % Max Pred HR: 53 % Target HR: 135 bpm Max RPP: 20,230 bpm*mmHg BP Response: Patient exhibited a hypertensive response with stress Termination Reason: Completed protocol Cardiac Symptoms: Shortness of breath, Headache Total Time: 1 min : 0 sec Rest [place] BP: 94 mmHg Peak [place] BP: 93 mmHg Total Dose: 0.4 mg Resting ECG Sinus rhythm. Stress ECG No ST changes. Arrhythmias None. Report Signatures
== END 2023-10-17 08:54 | disposition home or self-care (01) ==
PROVIDERS: PCP Family Medicine; Visit Provider Nurse Practitioner Family
DX: M54.9 Dorsalgia, unspecified (principal); R06.02 Shortness of breath; R07.89 Other chest pain
CPT/HCPCS: 78452; 93017; A9502; J2785

== ENCOUNTER 2024-03-26 11:26 | Outpatient (CLI) | payer BC, SELFPAY ==
--- NOTE | ~2024-03-26 | XR_ITS ---
XR foot LT min 3V Ordering provider: ELISA Maciel History: . M79.672 - Pain in left foot, MEDIAL SIDE HEEL. NKI . Comparison: None. FINDINGS: BONES: No acute fracture or dislocation. Calcaneal spur. JOINT SPACES: Normal. No tarsal coalition. SOFT TISSUES: Normal. IMPRESSION: No acute osseous abnormality left foot. Reviewed, dictated and finalized at location A.
== END 2024-03-26 11:27 | disposition home or self-care (01) ==
PROVIDERS: PCP Family Medicine; Visit Provider Nurse Practitioner Family
DX: M79.672 Pain in left foot (principal)
CPT/HCPCS: 73630

== ENCOUNTER 2024-05-13 09:12 | Outpatient (CLI) | payer BC, SELFPAY ==
--- NOTE | ~2024-05-13 | US_ITS ---
EXAMINATION: US art doppler w press LE DATE: 05/13/2024 10:26 INDICATION: Peripheral arterial disease. Left foot pain. TECHNIQUE: Segmental pressures and plethysmographic and Doppler waveforms of the brachial and lower e xtremity arteries were obtained. COMPARISON: None. FINDINGS: Right and left brachial artery pressures of 175 mm Hg and 163 mm Hg, respectively, are concordant (no rmal difference <= 30 mmHg). The right thigh pressures could not be measured due to inability to cuff occlude the arteries. The be low-knee pressure index is 0.92. The right ankle-brachial index (JIMENA) is 0.87 (normal >= 0.9-1.0). Th e right great toe-brachial index (TBI) is 0.46 (normal >= 0.65). Arterial Doppler waveforms are triph asic in common femoral artery and superficial femoral artery and biphasic in popliteal artery and at the ankle. The left thigh and below knee pressures could not be measured due to inability to cuff occlude the ar teries. The left JIMENA is 0.98. The left TBI is 0.38. Arterial Doppler waveforms are monophasic in comm on femoral artery and biphasic from superficial femoral artery to posterior tibial artery, and monoph asic and dorsalis pedis. IMPRESSION: 1. Mildly decreased ABIs and decreased TBIs, consistent with arterial occlusive disease. Reviewed, dictated and finalized at location A.
--- NOTE | ~2024-05-13 | US_ITS ---
EXAMINATION: US venous doppler [facility] DATE: 05/13/2024 10:32 INDICATION: Lower limb pain and swelling. Disorder of pigmentation, unspecified. TECHNIQUE: Grayscale ultrasound images without and with compression and Doppler ultrasound images of the bilateral lower extremity veins were obtained. COMPARISON: Ultrasound 11/27/2020 FINDINGS: The visualized portions of right common femoral vein, profunda (deep) femoral vein, femoral vein, pop liteal vein, peroneal veins, posterior tibial veins, and greater saphenous vein outflow are patent. The visualized portions of left common femoral vein, profunda femoral vein, femoral vein, popliteal v ein, peroneal veins, posterior tibial veins, and greater saphenous vein outflow are patent. IMPRESSION: 1. No deep venous thrombosis. Reviewed, dictated and finalized at location A.
== END 2024-05-13 09:13 | disposition home or self-care (01) ==
PROVIDERS: PCP Family Medicine; Visit Provider Nurse Practitioner Family
DX: L81.9 Disorder of pigmentation, unspecified (principal); M79.672 Pain in left foot; M79.89 Other specified soft tissue disorders; R20.9 Unspecified disturbances of skin sensation
CPT/HCPCS: 93923; 93970

== ENCOUNTER 2024-06-24 06:49 | Outpatient (CLI) | payer BC, SELFPAY ==
[2024-06-24 07:23] LABS: Hematocrit 42.6 % (37.0-47.0); Mean Corpuscular HGB Conc 32.9 g/dl (32-36); Mean Corpuscular Volume 88.4 fl (80-100); Mean Platelet Volume 9.2 fl (7.4-10.4); Platelet Count Result 244 k/mm3 (150-375); Red Blood Count 4.82 M/mm3 (4.2-5.4); Red Cell Distribution Width 14.1 % (11.5-14.5); White Blood Count 6.9 K/mm3 (4.5-10.0)
[2024-06-24 08:03] LABS: Iron 69 ug/dL (37-170)
[2024-06-24 08:12] LABS: Percent Iron Saturation 19 % (20-50)
[2024-06-26 07:48] LABS: Sex Hormone Binding Globulin 27 nmol/L (14-73)
[2024-06-26 11:53] LABS: FSH 31.1 mIU/mL; LH 12.8 mIU/mL
== END 2024-06-24 06:50 | disposition home or self-care (01) ==
PROVIDERS: PCP Family Medicine; Visit Provider Nurse Practitioner Family
DX: R73.03 Prediabetes (principal); R23.3 Spontaneous ecchymoses; E66.01 Morbid (severe) obesity due to excess calories
CPT/HCPCS: 36415; 83001; 83002; 83540; 83550; 84146; 84270; 85027

== ENCOUNTER 2024-06-27 12:14 | Outpatient (CLI) | payer BC, SELFPAY ==
[2024-06-27 13:08] LABS: Alanine Aminotransferase 20 U/L (6-35); Aspartate Amino Transferase 22 U/L (14-36)
== END 2024-06-27 12:15 | disposition home or self-care (01) ==
LOC: ANHLAB 12:18
PROVIDERS: PCP Family Medicine; Visit Provider Podiatrist Foot & Ankle Surgery
DX: B35.1 Tinea unguium (principal)
CPT/HCPCS: 36415; 84450; 84460

== ENCOUNTER 2024-07-20 06:42 | Outpatient (CLI) | payer BC, SELFPAY | END 2024-07-20 06:43 | disposition home or self-care (01) | PROVIDERS: PCP Family Medicine; Visit Provider Family Medicine | DX: E88.810 Metabolic syndrome (principal); R73.03 Prediabetes; E66.01 Morbid (severe) obesity due to excess calories; R63.5 Abnormal weight gain | CPT/HCPCS: 36415; 82533 ==

== ENCOUNTER 2024-09-26 09:18 | Outpatient (CLI) | payer BC, SELFPAY ==
[2024-09-26 12:50] LABS: Alanine Aminotransferase 22 U/L (6-35); Aspartate Amino Transferase 23 U/L (14-36)
== END 2024-09-26 09:19 | disposition home or self-care (01) ==
PROVIDERS: PCP Family Medicine; Visit Provider Podiatrist Foot & Ankle Surgery
DX: B35.1 Tinea unguium (principal)
CPT/HCPCS: 36415; 84450; 84460

== ENCOUNTER 2024-12-04 06:46 | Outpatient (CLI) | payer BC, SELFPAY ==
--- OUTSIDE RECORDS SUMMARY | 2024-12-04 06:51 | XMS_ITS | Clinical Summary ---
Author Organization [facility] Address [address] [place] [address] Care Team Providers Care Hotbed Transfer Operator Name Role Phone Cristopher Song MD Primary Care Provider [phone] Medications albuterol 1.25 MG/3ML nebulizer solution 2 Active lisinopril 10 MG tablet Take 10 mg by mouth in the morning. Active rosuvastatin 20 MG tablet Take 20 mg by mouth nightly at bedtime. Active metoprolol tartrate 25 MG tablet Take 25 mg by mouth in the morning and 25 mg before bedtime. Active aspirin EC 81 MG tablet Take 81 mg by mouth in the morning. Active CIRCAID COMPRESSION WRAP, DME, 15-20 mmHg, Put on in the morning and remove in the evening before bed. Dx: Lymphedema 2 Package 1 2 Active Active Problems Problem Noted Date Diagnosed Date Secondary lymphedema 02/17/2022 Pain and swelling of lower extremity 02/16/2022 Family History Relation Status Comments Father Mother Alive Social History Tobacco Use Types Packs/Day Years Used Date Smoking Tobacco: Never Smokeless Tobacco: Never Alcohol Use Standard Drinks/Week Comments Never 0 (1 standard drink = 0.6 oz pur e alcohol) Comments Unknown Sex and Gender Information Value Date Recorded Sex Assigned at Not on file Legal Sex Female 2:00 PM CDT Gender Identity Not on file Sexual Orientation Not on file Last Filed Vital Signs Vital Sign Reading Time Taken Comments Blood Pressure 144/82 03/23/2022 3:05 PM CDT Pulse 72 03/23/2022 3:05 PM CDT Temperature - - Respiratory Rate - - Oxygen Saturation - - Inhaled Oxygen Concentration - - Weight 145.2 kg (320 lb 3.2 oz) 03/23/2022 3:05 PM CDT Height 165.1 cm (5' 5 ) 03/23/2022 3:05 PM CDT Body Mass Index 53.28 03/23/2022 3:05 PM CDT Plan of Treatment Health Maintenance Due Date Last Done Comments Cervical Cancer Screening Pa p Smear (Age 30 to 64) Every 3 Years 1960 Colorectal Cancer Screening Colonoscopy (10 Years) 1960 Annual Physical 1965 Hepatitis C 1980 DTaP, Tdap and Td Vaccines ( 1 - Tdap) 1981 Cervical Cancer Screening Pa p with HPV Testing (Age 30 to 64) Every 5 Years 1992 Cervical Cancer Screening with HPV 1992 Mammogram Screening 2002 Zoster Vaccines (1 of 2) 2012 RSV Immunization or 60+ Years (1 - Risk 60-74 years 1-dose series) 2022 COVID-19 Vaccine ( - 2023-2 5 season) 2024 Influenza Adult (#1) 2024 Meningococcal B Vaccine Aged Out No l onger eligible based on patient's age to complete this topic Meningococcal Vaccine Aged Out No june cierra eligible based on patient's age to complete this topic Pneumococcal Vaccine: Pediat rics (0 to 5 Years) and At-Risk Patients (6 to 64 Years) Aged Out No longer eligible b ased on patient's age to complete this topic RSV Immunizations Under 20 Months Aged Out No longer eligible based on patient's age to complete this topic Insurance Care Teams Hotbed Transfer Operator Relationship Specialty Start Date End Date Cristopher Song MD [address] [place] [address] PCP - General FAMILY PRACTICE 09/25/21
--- OUTSIDE RECORDS SUMMARY | 2024-12-04 06:51 | XMS_ITS | Referral Summary ---
Author Organization [facility] Address [address] [place] [address] Care Team Providers Care Fiber Optic Technician Name Role Phone Cristopher Song MD Primary Care Provider [phone] Allergies No known active allergies Medications albuterol 1.25 mg/3 mL nebulizer solution 2 Active aspirin 81 mg enteric coated tablet Take 1 tablet (81 mg total) by mouth daily Active diclofenac (CATAFLAM) 50 mg tablet TAKE 1 TABLET BY MOUTH TWICE DAILY MONITOR FOR OSTEOARTHRITIS OR BLOOD PRESSURE 4 Active Trelegy Ellipta 100-62.5-25 mcg inhaler 1 puff daily 4 Active lisinopriL (PRINIVIL,ZEST RIL) 10 mg tablet Take 1 tablet (10 mg total) by mouth daily Active metoprolol tartrate (LOPRESSOR) 25 mg immediate release tablet Take 1 tablet (25 mg total) by mouth 2 (two) times a day Active rosuvastatin (CRESTOR) 20 mg tablet Take 1 tablet (20 mg total) by mouth daily Active vibegron (Gemtesa) 75 mg tablet Take 75 mg by mouth daily Active Active Problems Problem Noted Date Diagnosed Date Lower extremity edema 06/13/2024 Assessment & Plan (07/10/2024 9:20 AM CDT): Venous reflux was negative. Again encouraged continue his compression therapy to the lower extremities during the day can remove at night. Continue utilizing her pumps at least 2-3 times per day and highly recommended weight loss that would also benefit her as well. Follow-up as needed. Assessment & Plan (06/13/2024 10:24 AM CDT): History of chronic lower extremity edema as evidenced by hyperpigmentation especially to the left ankle. No wounds as of yet. Patient has attempted compression however has a difficult time with keeping them on due to the size of her calves. She has also been wearing her pumps and utilizing her lymphedema pumps twice per day continues to have heaviness and achiness and edema by the end of the day. Plan: Symptoms are likely caused mostly from a BMI of 54. Encourage weight loss, aqua therapy to help with movement and to manage the pain to her knees. Encouraged the use of the Velcro compression wraps(Farrow wraps) to help with managing the edema to her calves. Can follow-up in the next few weeks with a venous duplex. However did mention to the patient that at this time she may not be a surgical candidate given her BMI. 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 Gender Identity Not on file Sexual Orientation Not on file Last Filed Vital Signs Vital Sign Reading Time Taken Comments Blood Pressure 178/90 07/10/2024 8:56 AM CDT Pulse 64 07/10/2024 8:56 AM CDT Temperature - - Respiratory Rate - - Oxygen Saturation 96% 07/10/2024 8:56 AM CDT Inhaled Oxygen Concentration - - Weight 147.4 kg (324 lb 15.3 oz) 07/10/2024 8:56 AM CDT Height 165.1 cm (5' 5 ) 12/08/2023 9:03 AM CDT Body Mass Index 54.08 12/08/2023 9:03 AM CDT Plan of Treatment Not on file Insurance [facility] Care Teams Fiber Optic Technician Relationship Specialty Start Date End Date Cristopher Song MD PCP - General 03/26/15
--- OUTSIDE RECORDS SUMMARY | 2024-12-04 06:51 | XMS_ITS | CONTINUITY OF CARE DOCUMENT ---
Author Name diego cortez Address Unknown Organization [facility] Address [address] [place] [address] [address] [place] [address] Phone [phone] Care Team Providers Care Tool Room Supervisor Name Role Phone Stuart MCRAE, Shanae Unavailable ROZINA MCRAE, CELINA Unavailable ELICEO MCRAE, JOYCE F Unavailable INSURANCE PROVIDERS Payer name Policy type / Coverage type [place] [id number] PPO Other [id number] [facility] access hospital [id number]
--- OUTSIDE RECORDS SUMMARY | 2024-12-04 06:51 | XMS_ITS | Clinical Summary ---
Author Organization [facility] Address [address] [place] [address] Care Team Providers Care Manual Qa Tester Name Role Phone Cristopher Song MD Primary Care Provider Allergies No known active allergies Medications albuterol [...] surgical candidate given her BMI. Hypercholesteremia Hypertension Surgical History Surgery Date Site/Laterality Comments ANKLE SURGERY 09/25/1986 - 09/24/1987 Right FOREARM SURGERY 09/25/1986 - 09/24/1987 Left TONSILLECTOMY 09/25/1996 - 09/24/1997 CHOLECYSTECTOMY 09/25/1999 - 09/24/2000 HERNIA REPAIR 09/25/2004 - 09/24/2005 Medical History Medical History Date Comments Hypertension Hypercholesteremia Asthma Social History Tobacco Use Types Packs/Day Years Used Date Smoking Tobacco: Never Smokeless Tobacco: Never Tobacco Cessation:Counseling Given: Not Answered Personal Safety Answer Date Recorded Getting School Help Needed Not on file Comments Unknown Sex and Gender Information Value Date Recorded Sex Assigned at Not on file 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 Gender Identity Not on file Sexual Orientation Not on file Obstetrics History Last Filed Vital Signs Vital Sign Reading [...] 12/08/2023 9:03 AM CDT Plan of Treatment Health Maintenance Due Date Last Done Comments Breast Cancer Screening-Mammogram 1960 Cervical Cancer Screening 1962 Colon Cancer Screening-Colonoscopy 1960 Depression Screening 1962 Hepatitis C Screening 1962 DTaP/Tdap/Td Vaccine (1 - Tdap) 1973 Hepatitis B Screening 1980 Regular Well Visit/Exam 18-64 1980 Zoster Vaccine (1 of 2) 2012 Influenza Vaccine (#1) 2024 Pneumococcal vaccine <65 Aged Out No longer eligible based on patient's age to complete this topic Insurance [facility] Care Teams Manual Qa Tester Relationship Specialty Start Date End Date Cristopher Song MD PCP - General 03/26/15
[2024-12-04 07:25] LABS: Hematocrit 42.5 % (37.0-47.0); Hemoglobin 13.4 g/dL (12.0-15.0); Mean Corpuscular HGB Conc 31.5 g/dl (32-36); Mean Corpuscular Volume 88.9 fl (80-100); Mean Platelet Volume 9.4 fl (7.4-10.4); Platelet Count Result 208 k/mm3 (150-375); Red Blood Count 4.78 M/mm3 (4.2-5.4); Red Cell Distribution Width 15.3 % (11.5-14.5); White Blood Count 5.5 K/mm3 (4.5-10.0)
[2024-12-04 07:35] LABS: Alanine Aminotransferase 30 U/L (6-35); Albumin Level 4.3 g/dL (3.5-5.1); Alkaline Phosphatase 74 U/L (38-126); Anion Gap 6 mmol/L (4-12); Aspartate Amino Transferase 22 U/L (14-36); Bilirubin,Total 0.7 mg/dL (0.2-1.3); Blood Urea Nitrogen 20 mg/dL (7-17); Calcium 9.3 mg/dL (8.4-10.2); Carbon Dioxide 30 mmol/L (22-30); Chloride 106 mmol/L (98-107); Cholesterol 144 mg/dL (0-200); Estimated Glomerular Filt Rate > 60; Glucose 150 mg/dL (65-110); HDL Direct 42 mg/dL; Magnesium 1.8 mg/dL (1.6-2.3); Potassium 4.2 mmol/L (3.4-5.0); Sodium 142 mmol/L (137-145); Triglycerides 148 mg/dL (<150)
[2024-12-04 07:46] LABS: LDL Cholesterol Direct 77 mg/dL
[2024-12-04 07:54] LABS: Hemoglobin A1C 6.1 % (<5.7)
[2024-12-04 08:41] LABS: Folic Acid 13.3 ng/mL (2.76->20)
[2024-12-04 08:42] LABS: Vitamin D 25 Hydroxy 31.8 ng/mL
== END 2024-12-04 06:47 | disposition home or self-care (01) ==
LOC: ANHLAB 06:48
PROVIDERS: PCP Family Medicine; Visit Provider Nurse Practitioner Family
DX: E78.5 Hyperlipidemia, unspecified (principal); I10 Essential (primary) hypertension; E88.818 Other insulin resistance; Z13.29 Encounter for screening for other suspected endocrine disorder; E66.01 Morbid (severe) obesity due to excess calories; E55.9 Vitamin D deficiency, unspecified; R74.8 Abnormal levels of other serum enzymes
CPT/HCPCS: 36415; 80053; 80061; 82306; 82607; 82746; 83036; 83735; 84443; 85027

== ENCOUNTER 2024-12-30 13:31 | Outpatient (CLI) | payer BC, SELFPAY ==
--- NOTE | 2024-12-30 13:46 | ECHO_ITS ---
Patient Info Name: Nedra Dorman Age: 64 years : 1960 Gender: Female Ht: 65 in Wt: 335 lbs BSA: 2.74 m2 HR: 68 bpm BP: 185 / 79 mmHg Technical Quality: Fair Exam Date: 12/30/2024 1:50 PM Exam Location: Echo Lab Patient Status: Outpatient Admit Date: 12/30/2024 Staff Ordering Physician: Ayleen Koenig Utility Tech: Martine Perry RDCS Attending Provider: Ayleen Koenig Referring Physician: Liberty DUBOSE; Exam Type: CA echo doppler color flow Study Info Indications R06.02 - Shortness of breath Complete two-dimensional, color flow and Doppler transthoracic echocardiogram is performed. Summary 1. Complete two-dimensional, color flow and Doppler transthoracic echocardiogram is performed. 2. Left ventricular chamber dimension is normal. 3. Left ventricular systolic function is normal, estimated at 60-65%. 4. The left ventricular diastolic function is abnormal. 5. E/e' 11 is mildly elevated. 6. Left atrial chamber dimension is mildly enlarged. 7. The aortic valve is not well visualized. Cannot determine number of aortic valve leaflets. 8. There is mild aortic valve stenosis with a peak velocity of 227 cm/s, mean gradient of 11 mmHg, and aortic valve area of 2.0 cm2. 9. No pulmonary hypertension, estimated pulmonary arterial systolic pressure is 16 mmHg. Left Ventricle E/e' 11 is mildly elevated. Left ventricular chamber dimension is normal. Left ventricular systolic function is normal, estimated at 60-65%. The left ventricular diastolic function is abnormal. Right Ventricle Right ventricular chamber dimension is normal. Right ventricular systolic function is normal. Left Atria Left atrial chamber dimension is mildly enlarged. Right Atria Right atrial chamber dimension is normal. Aortic Valve The aortic valve is not well visualized. Cannot determine number of aortic valve leaflets. There is mild aortic valve stenosis with a peak velocity of 227 cm/s, mean gradient of 11 mmHg, and aortic valve area of 2.0 cm2. There is no aortic valve regurgitation. Pulmonic Valve There is no pulmonic regurgitation. Mitral Valve There is no mitral valve stenosis. There is no mitral valve regurgitation. Tricuspid Valve There is no tricuspid valve regurgitation. No pulmonary hypertension, estimated pulmonary arterial systolic pressure is 16 mmHg. Pericardium/Pleural There is no pericardial effusion. Inferior Vena Cava Normal inferior vena cava with >50% collapse upon inspiration consistent with normal right atrial pressure, 5 mmHg. Aorta The aortic root size at the sinus of Valsalva is normal. Left Ventricular Outflow Tract Name Value Normal LVOT 2D LVOT Diameter 1.9 cm LVOT Doppler LVOT Peak Gradient 6 mmHg LVOT Mean Gradient 3 mmHg LVOT VTI 35 cm LVOT VTI/AV VTI Ratio 0.7 LVOT Stroke Volume 98 ml LVOT CO 5.3 l/min LVOT CI 1.9 l/min/m2 Pulmonic Valve Name Value Normal RVOT Doppler RVOT Peak Gradient 4 mmHg PV Doppler PV Peak Gradient 5 mmHg Mitral Valve Name Value Normal MV Doppler MV Decel Mccone 445 cm/s2 MV PHT 73 ms MV Area (PHT) 3.0 cm2 4.0-5.0 MV Diastolic Function MV E Peak Velocity 112 cm/s MV A Peak Velocity 97 cm/s MV E/A 1.2 MV Decel Time 252 ms Tricuspid Valve Name Value Normal TV Regurgitation Doppler TR Peak Velocity 168 cm/s TR Peak Gradient 11 mmHg Estimated PAP/RSVP RA Pressure 5 mmHg <=5 PA Systolic Pressure 16 mmHg <36 RV Systolic Pressure 16 mmHg <36 Aorta Name Value Normal Ascending Aorta Ao Root Diameter (MM) 3.1 cm Ao Root Diam Index (MM) 1.1 cm/m2 Aortic Valve Name Value Normal AV Doppler AV Peak Velocity 227 cm/s AV Peak Gradient 18 mmHg AV Mean Gradient 11 mmHg AV VTI 49 cm AV Area (Cont Eq VTI) 2.0 cm2 >=3.0 AV Area (Cont Eq Oli) 1.6 cm2 AV Regurgitation 2D LVOT Area 2.8 cm2 Ventricles Name Value Normal LV Dimensions 2D/MM IVS Diastolic Thickness (2D) 1.7 cm 0.6-1.0 LVID Diastole (2D) 5.0 cm 3.8-5.2 LVIW Diastolic Thickness (2D) 1.4 cm 0.6-0.9 LVID Systole (2D) 3.7 cm 2.2-3.5 LVOT Diameter 1.9 cm LV Mass (2D Cubed) 339.68 g 67.00-162.00 LV Mass Index (2D Cubed) 124 g/m2 43-95 Relative Wall Thickness (2D) 0.55 LV Fractional Shortening/Ejection Fraction 2D/MM LV Fractional Shortening (2D) 25 % 27-45 LV EF (2D Teicholz) 50 % 54-74 LV Diastolic Volume (4C MOD) 89 ml LV EF (4C MOD) 68 % LV Diastolic Volume (2C MOD) 62 ml LV EF (2C MOD) 42 % LV Diastolic Volume (BP MOD) 74 ml 46-106 LV Diastolic Volume Index (BP MOD) 27 ml/m2 29-61 LV Systolic Volume (BP MOD) 32 ml 14-42 LV Systolic Volume Index (BP MOD) 12 ml/m2 8-24 LV EF (BP MOD) 56 % 54-74 LV Diastolic Length (4C) 8.5 cm LV Systolic Length (4C) 8.2 cm LV Stroke Volume (4C MOD) 60 ml Atria Name Value Normal LA Dimensions LA Dimension (MM) 3.5 cm 2.7-3.8 LA Volume (4C A-L) 43 ml LA Volume (BP A-L) 39 ml RA Dimensions RA Area (4C) 14.2 cm2 <=18.0 Report Signatures
--- OUTSIDE RECORDS SUMMARY | 2024-12-30 15:28 | XMS_ITS | Clinical Summary ---
Author Organization [facility] Address [address] [place] [address] Care Team Providers Care Jacquard Loom Fixer Name Role Phone Cristopher Song MD Primary Care Provider [phone] Medications albuterol 1.25 MG/3ML nebulizer solution 2 [...] Vaccine ( - 2023-2 5 season) 2024 Meningococcal B Vaccine Aged Out No [...] to complete this topic Insurance Care Teams Jacquard Loom Fixer Relationship Specialty Start Date End Date Cristopher Song MD [address] [place] [address] PCP - General FAMILY PRACTICE 09/25/21
--- OUTSIDE RECORDS SUMMARY | 2024-12-30 15:28 | XMS_ITS | Clinical Summary ---
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
--- OUTSIDE RECORDS SUMMARY | 2024-12-30 15:28 | XMS_ITS | Referral Summary ---
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
--- OUTSIDE RECORDS SUMMARY | 2024-12-30 15:28 | XMS_ITS | CONTINUITY OF CARE DOCUMENT ---
Author Name diego cortez Address Unknown Organization [facility] Address [id number] [place] [address] [address] [place] [address] Phone [phone] Care Team Providers Care Food Chemist Name Role Phone Stuatr MCRAE, Shanae Unavailable ROZINA MCRAE, CELINA Unavailable ELICEO MCRAE, JOYCE F Unavailable INSURANCE PROVIDERS Payer name Policy type / Coverage type [place] red alliance party ID [employer] PPO Other [id number] [facility] [id number]
== END 2024-12-30 13:32 | disposition home or self-care (01) ==
PROVIDERS: PCP Family Medicine; Visit Provider Nurse Practitioner Family
DX: R06.02 Shortness of breath (principal); I35.0 Nonrheumatic aortic (valve) stenosis
CPT/HCPCS: 93306

== ENCOUNTER 2025-01-23 09:14 | Outpatient (CLI) | payer BC, SELFPAY ==
--- OUTSIDE RECORDS SUMMARY | 2025-01-23 09:34 | XMS_ITS | Referral Summary ---
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
--- OUTSIDE RECORDS SUMMARY | 2025-01-23 09:34 | XMS_ITS | Clinical Summary ---
Author Organization [facility] Address [address] [place] [address] Care Team Providers Care Skidway Worker Name Role Phone Cristopher Song MD Primary Care Provider [phone] Medications albuterol 1.25 MG/3ML nebulizer solution 2 [...] Screening with HPV 1992 Mammogram Screening 2002 Pneumococcal Vaccine: 50+ Ye ars (1 of 1 - PCV) 2012 Zoster Vaccines (1 of 2) 2012 RSV Immunization or 60+ Years (1 - Risk 60-74 years 1-dose series) 2022 COVID-19 Vaccine (1 - 2023-2 5 season) 2024 Meningococcal B Vaccine Aged Out No l onger eligible based on patient's age to complete this topic Meningococcal Vaccine Aged Out No june cierra eligible based on patient's age to complete this topic RSV Immunizations Under 20 Months Aged Out No longer eligible based on patient's age to complete this topic Insurance [employer] Care Teams Skidway Worker Relationship Specialty Start Date End Date Cristopher Song MD [address] [place] [address] PCP - General FAMILY PRACTICE 09/25/21
--- OUTSIDE RECORDS SUMMARY | 2025-01-23 09:34 | XMS_ITS | Clinical Summary ---
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
--- OUTSIDE RECORDS SUMMARY | 2025-01-23 09:34 | XMS_ITS | CONTINUITY OF CARE DOCUMENT ---
Author Name diego cortez Address Unknown Organization [facility] Address [id number] [place] [address] [address] [place] [address] Phone [phone] Care Team Providers Care Waste Salvager Name Role Phone Stuart MCRAE, Shanae Unavailable [phone] ROZINA MCRAE, CELINA Unavailable ELICEO MCRAE, JOYCE F Unavailable [phone] INSURANCE PROVIDERS Payer name Policy type / Coverage type [place] red republican ID [employer] PPO Other [id number] [facility] [id number]
[2025-01-23 09:35] LABS: Hematocrit 42.2 % (37.0-47.0); Hemoglobin 13.4 g/dL (12.0-15.0); Mean Corpuscular HGB Conc 31.8 g/dl (32-36); Mean Corpuscular Volume 91.3 fl (80-100); Mean Platelet Volume 9.2 fl (7.4-10.4); Platelet Count Result 207 k/mm3 (150-375); Red Blood Count 4.62 M/mm3 (4.2-5.4); Red Cell Distribution Width 14.6 % (11.5-14.5); White Blood Count 6.5 K/mm3 (4.5-10.0)
[2025-01-23 09:46] LABS: Prothrombin Time 13.8 Seconds (11.1-14.7)
[2025-01-23 09:47] LABS: Iron 103 ug/dL (37-170)
[2025-01-23 09:59] LABS: Percent Iron Saturation 33 % (20-50)
== END 2025-01-23 09:15 | disposition home or self-care (01) ==
LOC: ANHLAB 09:14
PROVIDERS: PCP Family Medicine; Visit Provider Nurse Practitioner Family
DX: R23.3 Spontaneous ecchymoses (principal); D64.9 Anemia, unspecified
CPT/HCPCS: 36415; 83540; 83550; 85027; 85610

== ENCOUNTER 2025-02-05 08:01 | Emergency (ER) | payer BC, SELFPAY ==
--- OUTSIDE RECORDS SUMMARY | 2025-02-05 08:07 | XMS_ITS | Referral Summary ---
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
--- OUTSIDE RECORDS SUMMARY | 2025-02-05 08:07 | XMS_ITS | Clinical Summary ---
Author Organization [facility] Address [address] [place] [address] Care Team Providers Care Farmworker Rice Name Role Phone Cristopher Song MD Primary Care Provider [phone] Medications albuterol 1.25 MG/3ML nebulizer solution 2 [...] topic Insurance [employer] Care Teams Farmworker Rice Relationship Specialty Start Date End Date Cristpoher Song MD [address] [place] [address] PCP - General FAMILY PRACTICE 09/25/21
--- OUTSIDE RECORDS SUMMARY | 2025-02-05 08:07 | XMS_ITS | CONTINUITY OF CARE DOCUMENT ---
Author Name diego cortez Address Unknown Organization [facility] Address [address] [place] [address] [address] [place] [address] Phone [phone] Care Team Providers Care Moid [employer] Teacher Name Role Phone Stuart MCRAE, Shanae Unavailable ROZINA MCRAE, CELINA Unavailable ELICEO MCRAE, JOYCE F Unavailable INSURANCE PROVIDERS Payer name Policy type / Coverage type [place] red constitution party ID [employer] PPO Other [id number] [facility] [id number]
--- OUTSIDE RECORDS SUMMARY | 2025-02-05 08:07 | XMS_ITS | Clinical Summary ---
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
--- OUTSIDE RECORDS SUMMARY | 2025-02-05 08:10 | XMS_ITS | CONTINUITY OF CARE DOCUMENT ---
Author Name diego cortez Address Unknown Organization [facility] Address [address] [place] [address] [address] [place] [address] Phone [phone] Care Team Providers Care Dance Choreographer Name Role Phone Stuart MCRAE, Shanae Unavailable [phone] ROZINA MCRAE, CELINA Unavailable [phone] ELICEO MCRAE, JOYCE F Unavailable INSURANCE PROVIDERS Payer name Policy type / Coverage type [place] red democrat ID [employer] PPO Other [id number] [facility] [id number]
--- NOTE | 2025-02-05 08:12 | ED.URI ---
HPI - URI/Sore Throat General Chief Complaint: Upper Respiratory Infection Stated Complaint: bronchitis Time Seen by Provider: 02/05/25 08:12 Source: patient, RN notes reviewed and old records reviewed Mode of arrival: ambulatory Limitations: no limitations History of Present Illness HPI Narrative: 64-year-old female who presents to [facility] with cough, shortness of breath with minimal exertion. Patient reports history of Bronchitis in the past and feels like that is what is going on now with her symptoms. Patient reports that she takes Trelegy inhaler as ordered daily and has been using using her nebulizer treatments with last one at 0500 this morning. Patient reports that she has some sinus drainage and also cough is productive of greenish yellow phlegm Patient does not have hand held rescue inhaler. MD elicited complaint: cough, rhinorrhea, nasal congestion and other (wheezing with dyspnea with exertionb) Pertinent past history: other (Bronchitis) Onset (ago): day(s) (2 days ago) Severity: moderate Able to tolerate fluids by mouth: Yes Treatments prior to arrival: other (nebulizer treatments, took a dose of Singulair this morning) Related Data Home Medications Medication Instructions Recorded Confirmed Last Taken Type aspirin 81 mg tablet,delayed 81 mg PO DAILY 03/21/22 12/03/24 Unknown History release (Adult Low Dose Aspirin) vibegron 75 mg tablet (Gemtesa) 75 mg PO DAILY 03/26/24 12/03/24 Unknown History Allergies Allergy/AdvReac Type Severity Reaction Status Date / Time No Known Allergies Allergy Verified 02/05/25 08:17 Review of Systems Review of Systems: CONSTITUTIONAL: Denies malaise, chills, sweats, or fever. EYES: Denies visual changes, redness, or discharge. ENT: Reports rhinorrhea, congestion,no sinus pain,no otalgia and no sore throat. CARDIOVASCULAR: Denies chest pain, palpitations, or edema. RESPIRATORY: Reports productive cough. Reports dyspnea with exertion GASTROINTESTINAL: Denies abdominal pain, nausea, vomiting, diarrhea SKIN: Denies rash or itching. MUSCULOSKELETAL: Denies myalgia. NEUROLOGIC: Denies headache. All systems reviewed & are unremarkable except as noted in HPI and below PMFSH Past Medical History Medical History Leg swelling Bronchitis Bronchitis Elevated glucose Dermatitis Cataract (lens) fragments in eye following cataract surgery, right eye Cataract (lens) fragments in eye following cataract surgery, left eye JESSICA on CPAP Pre-diabetes Metabolic syndrome Postmenopausal bleeding Hyperlipidemia Knee pain, right Asthma Hypertension Essential (primary) hypertension Surgical History Surgical History History of tonsillectomy History of ankle surgery S/P hernia surgery S/P cholecystectomy H/O dilation and curettage Family History Family History Unknown Hypertension Father Alcoholic Mother Borderline hyperlipidemia Sibling Malignant neoplasm of prostate Other Colon polyp Social History Social History Smoking status: Never smoker Second hand tobacco smoke exposure: Yes Alcohol intake: current Substance use: never Substance use type: does not use Do You Feel Safe in your Home?: Yes Lack of Transportation: No Lack of Food: Never True Current Housing: I Have Housing Concerned About Future Housing: No Difficulty Paying Gas/Electric Bills: No Difficulty Paying for Meds: No Currently Unemployed: No Education: Associate Degree Difficulty w/ Childcare or Family Care: No Living arrangements: with family Occupation/Education: occupation 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 There is no relevant family history pertinent to the presenting complaint Exam Narrative: GENERAL: Well-appearing, well-nourished,obese and in no acute distress. HEAD: Normocephalic EYES: PERRLA, conjunctivae clear ENT: Nares clear, turbinates edematous and erythematous, clear discharge to yellowish mucous. Mucous membranes moist. TM pearly savage with dull light reflex bilaterally; no tragal tenderness. Oropharynx erythematous without lesions. Tonsils not present and throat without exudate, no drooling, no hoarseness, no trismus, uvula midline, post nasal drainage noted. NECK: Supple. No lymphadenopathy CHEST: Expiratory wheezes especially left lobes on auscultation, breath sounds equal. + wheezing, no rhonchi, rales, or stridor. No respiratory distress, speaks in full sentences.cough which is productive, mild tachycardia, some dyspnea with exertion. SAO2 97 % on room air HEART: Regular rate and rhythm. No murmur heard. SKIN: Warm, dry, no rash. NEURO: Alert and oriented x3. PSYCH: Normal mood and affect Course Course Emergency Course: Patient is aware of diagnosis, understands and agrees to treatment plan. Anticipatory guidance given. Patient agrees to follow-up as directed and is aware of reasons to seek care at the emergency department. Portions of this record may have been created with voice recognition software Level of Care: Express Care Visit Vital Signs Vital signs: Vital Signs Temperature 36.3 C L 02/05/25 08:14 Pulse Rate 66 02/05/25 08:14 Respiratory Rate 24 H 02/05/25 08:14 Blood Pressure 151/86 H 02/05/25 08:14 Pulse Oximetry 97 02/05/25 08:14 Oxygen Delivery Room Air 02/05/25 08:14 Temperature 36.3 C L 02/05/25 08:14 Pulse Rate 66 02/05/25 08:14 Respiratory Rate 24 H 02/05/25 08:14 Blood Pressure 151/86 H 02/05/25 08:14 Pulse Oximetry 97 02/05/25 08:14 Oxygen Delivery Room Air 02/05/25 08:14 Reviewed MDM - URI/Sore Throat MDM Narrative Medical decision making narrative: Differential diagnosis considered: Collazo virus, strep pharyngitis, allergic rhinitis, upper respiratory tract infection, sinusitis, rhinosinusitis, nasopharyngitis. viral pharyngitis, otitis media, otitis externa, pneumonia, bronchitis, viral cough syndrome, viral syndrome, and influenza. Exam findings show no acute concerns or changes; patient is non-toxic appearing and is in no distress. Patient is appropriate for outpatient treatment and follow-up. Differential Diagnosis Differential diagnosis: Likely upper respiratory infection, viral infection, bronchitis and other (MALDONADO) Medical Records Attestation: I reviewed the patient's medical records. Lab Data Attestation: I reviewed the patient's lab results. Critical Care Time Critical Care Time Critical Care Time: No Discharge Plan Discharge Clinical Impression: Acute bronchitis Qualifiers: Bronchitis organism: unspecified organism Qualified Code(s): J20.9 - Acute bronchitis, unspecified Patient Disposition: Home Condition: Stable Instructions: Antibiotic Form, Acute Bronchitis (ED) Additional Instructions: Increase fluids especially juices and water [id number]-wus-ekckoxo cough and cold medicine of your choice for your symptoms Zyrtec Claritin or Leah include Coricidin brand decongestant Continue your inhaler/nebulizer as directed Steroids as directed--take with food heat to the face 20-30 minutes 4-6 times a day for pain Salt water gargles, throat lozenges or throat sprays as desired Antibiotic as directed--finished the medication If your symptoms persist, change or worsen significantly before you can contact your personal physician then please, without delay, go to the emergency department for further evaluation. Follow-up with PCP in 7-10 days or sooner if needed Follow up with PCP soon in regards to your blood pressure which is elevated above threshold for referral. Blood pressure above 120/80 may indicate pre-hypertension.151/86 Monitor for any fevers Patient Language: Citizen Of [place] Prescriptions: New albuterol sulfate [Ventolin HFA] 90 mcg/actuation HFA aerosol inhaler 2 puff inhalation QID PRN (Reason: shortness of breath or wheezing) Qty: 8.5 0RF Rx Instructions: Use as prescribed and needed for shortness of breath prednisone 20 mg tablet 40 mg PO DAILY 5 Days Qty: 10 0RF clarithromycin 500 mg tablet 500 mg PO Q12H Qty: 20 0RF Rx Instructions: take with food No Action Gemtesa 75 mg tablet 75 mg PO DAILY ketoconazole 2 % cream 1 applic topical BID Qty: 60 0RF albuterol sulfate 1.25 mg/3 mL solution for nebulization 1.25 mg inhalation Q4-6H PRN (Reason: shortness of breath or wheezing) Qty: 90 1RF aspirin [Adult Low Dose Aspirin] 81 mg tablet,delayed release (DR/EC) 81 mg PO DAILY lisinopril 10 mg tablet See Rx Instructions .ROUTE .COMPLEX Qty: 90 3RF Dose Instruction: TAKE 1 TABLET BY MOUTH DAILY Rx Instructions: TAKE 1 TABLET BY MOUTH DAILY metoprolol tartrate 25 mg tablet 25 mg PO BID Qty: 180 2RF rosuvastatin 20 mg tablet See Rx Instructions .ROUTE .COMPLEX Qty: 90 2RF Dose Instruction: TAKE 1 TABLET BY MOUTH DAILY Rx Instructions: TAKE 1 TABLET BY MOUTH DAILY diclofenac potassium 50 mg tablet See Rx Instructions .ROUTE .COMPLEX Qty: 60 2RF Dose Instruction: TAKE 1 TABLET BY MOUTH TWICE DAILY MONITOR FOR OSTEOARTHRITIS OR BLOOD PRESSURE Rx Instructions: TAKE 1 TABLET BY MOUTH TWICE DAILY MONITOR FOR OSTEOARTHRITIS OR BLOOD PRESSURE Trelebhavna Ellipta 100-62.5-25 mcg blister with device 1 inh inhalation DAILY Qty: 28 2RF Follow-up/Referrals: Ayleen Koenig FNP [Primary Care Provider] - Time of Disposition: 08:27 Quality John Coma Scale Eyes: Open Verbal: Oriented and Alert Motor: Follows Commands Mitchells Coma Total Score: 15
[2025-02-05 08:14] VITALS: BP 151/86; PULSE 66; RESP 24; TEMP 36.3; O2SAT 97
== END 2025-02-05 08:38 | disposition home or self-care (01) ==
PROVIDERS: Emergency Provider Registered Nurse; PCP Nurse Practitioner Family
DX: J20.9 Acute bronchitis, unspecified (principal); E78.5 Hyperlipidemia, unspecified; I10 Essential (primary) hypertension; J45.909 Unspecified asthma, uncomplicated; E88.810 Metabolic syndrome; G47.33 Obstructive sleep apnea (adult) (pediatric); Z79.82 Long term (current) use of aspirin
CPT/HCPCS: 99213; G0463

== ENCOUNTER 2025-02-10 14:26 | Outpatient (CLI) | payer BC, SELFPAY ==
--- NOTE | ~2025-02-10 | XR_ITS ---
CHEST RADIOGRAPH, PA AND LATERAL CLINICAL HISTORY: R05.9 - Cough, unspecified, WHEEZING X 1 WEEK . COMPARISON: 09/26/2023 TECHNIQUE: PA and lateral views of the chest. FINDINGS The cardiomediastinal silhouette is unremarkable. The lungs are clear. IMPRESSION: No focal infiltrate or effusion. Reviewed, dictated and finalized at location A.
--- OUTSIDE RECORDS SUMMARY | 2025-02-10 14:30 | XMS_ITS | Referral Summary ---
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
--- OUTSIDE RECORDS SUMMARY | 2025-02-10 14:30 | XMS_ITS | Clinical Summary ---
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
--- OUTSIDE RECORDS SUMMARY | 2025-02-10 14:30 | XMS_ITS | CONTINUITY OF CARE DOCUMENT ---
Author Name diego cortez Address Unknown Organization [facility] Address [address] [place] [address] [address] [place] [address] Phone [phone] Care Team Providers Care Keno Writer/Runner Name Role Phone Stuart MCRAE, Shanae Unavailable ROZINA MCRAE, CELINA Unavailable ELICEO MCRAE, JOYCE F Unavailable [phone] INSURANCE PROVIDERS Payer name Policy type / Coverage type Anderson red green party ID [employer] PPO Other [id number] Pending sale to [facility] [id number]
--- OUTSIDE RECORDS SUMMARY | 2025-02-10 14:30 | XMS_ITS | Clinical Summary ---
Author Organization [facility] Address [address] [place] [address] Care Team Providers Care Restaurant Manager Name Role Phone Cristopher Song MD Primary Care Provider [phone] Medications albuterol 1.25 MG/3ML nebulizer solution 2 [...] topic Insurance [employer] Care Teams Restaurant Manager Relationship Specialty Start Date End Date Cristopher Song MD [address] [place] [address] PCP - General FAMILY PRACTICE 09/25/21
== END 2025-02-10 14:27 | disposition home or self-care (01) ==
PROVIDERS: PCP Family Medicine; Visit Provider Nurse Practitioner Family
DX: R05.9 Cough, unspecified (principal); R06.2 Wheezing
CPT/HCPCS: 71046

== ENCOUNTER 2025-05-13 14:20 | Outpatient (RCR) | payer BC, SELFPAY ==
[2025-05-13 14:41] VITALS: BMI 56.5
[2025-05-13 15:29] VITALS: BMI 56.5
--- NOTE | 2025-05-13 15:51 | PCDIET ---
Nutrition consult complete. TALIA
== END 2025-07-28 10:06 | disposition home or self-care (01) ==
LOC: ANHDMC 14:20
PROVIDERS: PCP Family Medicine; Visit Provider Nurse Practitioner Family
DX: E78.5 Hyperlipidemia, unspecified (principal); E66.01 Morbid (severe) obesity due to excess calories; R73.03 Prediabetes; M79.89 Other specified soft tissue disorders; Z71.3 Dietary counseling and surveillance
CPT/HCPCS: 97802